=== PATIENT | female | born 1945 | race Caucasian/White ===

== ENCOUNTER 2020-03-10 15:00 | Inpatient (IN) | payer MEDICARE ==
--- NOTE | 2020-03-10 15:25 | ED ---
General Adult HPI - General Chief complaint: Recheck/Abnormal Lab/Rx Stated complaint: SOB Time Seen by Provider: 03/10/20 15:05 Source: patient Mode of arrival: wheelchair Limitations: no limitations - History of Present Illness Initial comments: Patient is a 74-year-old female past medical history of iron deficiency anemia, SVT who presents to the emergency department with reported exertional shortness of breath and palpitations. Patient states that she has been short of breath since Wednesday. Symptoms feel similar to when her hemoglobin drop secondary to her iron deficiency anemia. She sees Dr. Sal in office. Her last evaluation was in October. Her abdomen was low but not low enough for transfusion. She's been unable to follow-up because Covid. She denies any chest pain but admits chest pressure. No previous history of cardiac or lung disease. Denies fevers, chills or cough. No nausea or vomiting. Denies orthopnea. Denies melenic stools or hematochezia. Reports that she's had a thorough workup for her anemia. Denies any lower extremity edema. No history of DVT or PE. She is not on any blood thinning medications. There are no alleviating, precipitating or modifying factors - Related Data Home Medications Medication Instructions Recorded Confirmed Atorvastatin [Lipitor] 20 mg PO DAILY 03/10/20 03/10/20 Cholecalciferol (Vitamin D3) 50 mcg PO DAILY 03/10/20 03/10/20 [Vitamin D3] Diltiazem HCl [Cardizem CD] 240 mg PO DAILY 03/10/20 03/10/20 Losartan Potassium [Cozaar] 25 mg PO DAILY 03/10/20 03/10/20 Omeprazole [PriLOSEC] 20 mg PO DAILY 03/10/20 03/10/20 Previous Rx's Medication Instructions Recorded Amoxic-Pot Clav 875-125Mg 1 each PO Q12HR #12 tab 03/12/20 [Augmentin 875-125] Butalb/APAP/Caff 50-325-40Mg 1 each PO Q4HR PRN tab 03/12/20 [Fioricet 50-325-40] Allergies Allergy/AdvReac Type Severity Reaction Status Date / Time meperidine [From Demerol] Allergy Unknown Verified 03/10/20 16:15 iron AdvReac Vomiting Verified 03/10/20 16:15 Review of Systems ROS Statement: Those systems with pertinent positive or pertinent negative responses have been documented in the HPI. ROS Other: All systems not noted in ROS Statement are negative. Past Medical History Past Medical History: Hyperlipidemia, Hypertension, Supraventricular Tachycardia (SVT) Additional Past Medical History / Comment(s): Iron deficiency anemia, SVT, vasovagal History of Any Multi-Drug Resistant Organisms: None Reported Past Surgical History: Back Surgery Past Psychological History: No Psychological Hx Reported Smoking Status: Never smoker Past Alcohol Use History: None Reported Past Drug Use History: None Reported - Past Family History Mother Additional Family Medical History / Comment(s): heart problems Sister(s) Family Medical History: Cancer Additional Family Medical History / Comment(s): of pancreatic cancer General Exam Limitations: no limitations General appearance: alert, in no apparent distress Head exam: Present: atraumatic, normocephalic, normal inspection Eye exam: Present: normal appearance, PERRL, EOMI. Absent: scleral icterus, conjunctival injection, periorbital swelling ENT exam: Present: normal exam, mucous membranes moist Neck exam: Present: normal inspection. Absent: tenderness, meningismus, lymphadenopathy Respiratory exam: Present: respiratory distress, decreased breath sounds, other (coarse at bases. tachypnia). Absent: wheezes, rales, rhonchi, stridor Cardiovascular Exam: Present: regular rate, normal rhythm, normal heart sounds. Absent: systolic murmur, diastolic murmur, rubs, gallop, clicks GI/Abdominal exam: Present: soft, normal bowel sounds. Absent: distended, tenderness, guarding, rebound, rigid Extremities exam: Present: normal inspection, full ROM, normal capillary refill. Absent: tenderness, pedal edema, joint swelling, calf tenderness Back exam: Present: normal inspection Neurological exam: Present: alert, oriented X3, CN II-XII intact Psychiatric exam: Present: normal affect, normal mood Skin exam: Present: warm, dry, intact, normal color. Absent: rash Course Vital Signs 03/10/20 03/10/20 03/10/20 15:05 16:15 17:24 Temperature 99.1 F Pulse Rate 109 H 82 81 Pulse Rate [ Pulse Oximetery ] Respiratory 20 18 18 Rate Blood Pressure 168/93 157/95 157/95 Blood Pressure [Right Arm] O2 Sat by Pulse 92 L 95 95 Oximetry 03/10/20 03/10/20 03/10/20 17:27 17:33 17:45 Temperature 99.5 F Pulse Rate 80 84 90 Pulse Rate [ Pulse Oximetery ] Respiratory 20 Rate Blood Pressure 156/83 Blood Pressure [Right Arm] O2 Sat by Pulse 93 L Oximetry 03/10/20 03/10/20 03/10/20 17:46 18:44 19:22 Temperature 98.6 F 98.7 F Pulse Rate 85 86 Pulse Rate [ Pulse Oximetery ] Respiratory 18 18 Rate Blood Pressure 151/88 142/87 Blood Pressure [Right Arm] O2 Sat by Pulse 89 L 92 L 93 L Oximetry 03/10/20 03/10/20 03/10/20 20:42 20:53 21:45 Temperature 98.1 F Pulse Rate 83 93 100 Pulse Rate [ Pulse Oximetery ] Respiratory 20 Rate Blood Pressure 106/52 Blood Pressure [Right Arm] O2 Sat by Pulse 96 Oximetry 03/10/20 03/10/20 03/11/20 23:29 23:38 01:20 Temperature 97 F L Pulse Rate 86 86 Pulse Rate [ 99 Pulse Oximetery ] Respiratory 16 Rate Blood Pressure Blood Pressure 121/67 [Right Arm] O2 Sat by Pulse 96 93 L Oximetry 03/11/20 03/11/20 03/11/20 04:10 04:22 07:00 Temperature 97.8 F Pulse Rate 90 104 H Pulse Rate [ 86 Pulse Oximetery ] Respiratory 20 Rate Blood Pressure Blood Pressure 124/67 [Right Arm] O2 Sat by Pulse 91 L Oximetry 03/11/20 03/11/20 03/11/20 07:59 08:15 12:20 Temperature Pulse Rate 100 102 H 96 Pulse Rate [ Pulse Oximetery ] Respiratory Rate Blood Pressure Blood Pressure [Right Arm] O2 Sat by Pulse Oximetry 03/11/20 03/11/20 12:33 15:00 Temperature 98.4 F Pulse Rate 96 Pulse Rate [ 110 H Pulse Oximetery ] Respiratory 20 Rate Blood Pressure Blood Pressure 152/80 [Right Arm] O2 Sat by Pulse 91 L Oximetry EKG Findings - EKG Comments: EKG Findings:: Demonstrates a sinus rhythm with ventricular rate of 90. WA interval 216. QRS 82. QTC family. No acute ST segment elevations. T wave is inverted T-wave in lead 3. Medical Decision Making - Medical Decision Making Upon arrival the patient is placed into room 1. A thorough history and physical exam was performed. The patient is saturating 92% on room air. She is placed on 2 L of oxygen. Laboratory studies were conducted and the patient went for chest x-ray. Laboratory studies are remarkable for a hemoglobin of 12.9. D- dimer was elevated at 0.95. I did discuss the results with the patient. I did recommend CT of the patient's chest which demonstrates no evidence of pulmonary embolism with extensive chronic interstitial pulmonary infiltrates similar to her old exam. Patient is given a DuoNeb breathing treatment and 125 mg of solumedrol. Patient does sit up on the side of the bed is and is saturating only 89% on room air. She does ambulate at 89%. Because of the patient's persistent hypoxia requiring oxygen I did recommend hospital admission for which the patient did agree to. I discussed case with Dr. Colón. I will consult neurology. Patient was in agreement with the treatment plan and she was awaiting a bed on the floor - Lab Data Result diagrams: 03/10/20 15:14 03/10/20 15:14 Lab Results 03/10/20 03/10/20 03/10/20 Range/Units 15:14 15:14 15:14 WBC 8.6 (3.8-10.6) k/uL RBC 4.27 (3.80-5.40) m/uL Hgb 12.9 (11.4-16.0) gm/dL Hct 38.5 (34.0-46.0) % MCV 90.3 (80.0-100.0) fL MCH 30.2 (25.0-35.0) pg MCHC 33.4 (31.0-37.0) g/dL RDW 14.3 (11.5-15.5) % Plt Count 271 (150-450) k/uL Neutrophils % 75 % Lymphocytes % 13 % Monocytes % 7 % Eosinophils % 2 % Basophils % 0 % Neutrophils # 6.5 (1.3-7.7) k/uL Lymphocytes # 1.2 (1.0-4.8) k/uL Monocytes # 0.6 (0-1.0) k/uL Eosinophils # 0.2 (0-0.7) k/uL Basophils # 0.0 (0-0.2) k/uL PT 9.8 (9.0-12.0) sec INR 0.9 (<1.2) APTT 22.7 (22.0-30.0) sec D-Dimer 0.95 H (<0.60) mg/L FEU Sodium 136 L (137-145) mmol/L Potassium 3.7 (3.5-5.1) mmol/L Chloride 105 (98-107) mmol/L Carbon Dioxide 24 (22-30) mmol/L Anion Gap 7 mmol/L BUN 16 (7-17) mg/dL Creatinine 0.70 (0.52-1.04) mg/dL Est GFR (CKD-EPI)AfAm >90 (>60 ml/min/1.73 sqM) Est GFR (CKD-EPI)NonAf 85 (>60 ml/min/1.73 sqM) Glucose 116 H (74-99) mg/dL Plasma Lactic Acid Jamal (0.7-2.0) mmol/L Calcium 9.7 (8.4-10.2) mg/dL Magnesium 1.9 (1.6-2.3) mg/dL Iron (50-170) ug/dL TIBC (228-460) ug/dL % Saturation (12.00-45.00) Total Bilirubin 0.4 (0.2-1.3) mg/dL AST 32 (14-36) U/L ALT 28 (4-34) U/L Alkaline Phosphatase 135 H (38-126) U/L Troponin I (0.000-0.034) ng/mL Total Protein 6.5 (6.3-8.2) g/dL Albumin 3.7 (3.5-5.0) g/dL 03/10/20 03/10/20 03/10/20 Range/Units 15:14 15:14 15:14 WBC (3.8-10.6) k/uL RBC (3.80-5.40) m/uL Hgb (11.4-16.0) gm/dL Hct (34.0-46.0) % MCV (80.0-100.0) fL MCH (25.0-35.0) pg MCHC (31.0-37.0) g/dL RDW (11.5-15.5) % Plt Count (150-450) k/uL Neutrophils % % Lymphocytes % % Monocytes % % Eosinophils % % Basophils % % Neutrophils # (1.3-7.7) k/uL Lymphocytes # (1.0-4.8) k/uL Monocytes # (0-1.0) k/uL Eosinophils # (0-0.7) k/uL Basophils # (0-0.2) k/uL PT (9.0-12.0) sec INR (<1.2) APTT (22.0-30.0) sec D-Dimer (<0.60) mg/L FEU Sodium (137-145) mmol/L Potassium (3.5-5.1) mmol/L Chloride (98-107) mmol/L Carbon Dioxide (22-30) mmol/L Anion Gap mmol/L BUN (7-17) mg/dL Creatinine (0.52-1.04) mg/dL Est GFR (CKD-EPI)AfAm (>60 ml/min/1.73 sqM) Est GFR (CKD-EPI)NonAf (>60 ml/min/1.73 sqM) Glucose (74-99) mg/dL Plasma Lactic Acid Jamal 1.1 (0.7-2.0) mmol/L Calcium (8.4-10.2) mg/dL Magnesium (1.6-2.3) mg/dL Iron 30 L (50-170) ug/dL TIBC 379 (228-460) ug/dL % Saturation 7.92 L (12.00-45.00) Total Bilirubin (0.2-1.3) mg/dL AST (14-36) U/L ALT (4-34) U/L Alkaline Phosphatase (38-126) U/L Troponin I <0.012 (0.000-0.034) ng/mL Total Protein (6.3-8.2) g/dL Albumin (3.5-5.0) g/dL Disposition Clinical Impression: Shortness of breath, Hypoxia Disposition: ADMITTED IP TO THIS [facility] Condition: Stable Is patient prescribed a controlled substance at d/c from ED?: No Decision to Admit Reason: Admit from EC Decision Date: 03/10/20 Decision Time: 17:52
[2020-03-10 15:40] LABS: Basophils % (A) 0 %; Eosinophils # (A) 0.2 k/uL (0-0.7); Eosinophils % (A) 2 %; HCT 38.5 % (34.0-46.0); HGB 12.9 gm/dL (11.4-16.0); Lymphocytes # (A) 1.2 k/uL (1.0-4.8); Lymphocytes % (A) 13 %; MCH 30.2 pg (25.0-35.0); MCHC 33.4 g/dL (31.0-37.0); MCV 90.3 fL (80.0-100.0); Mean Platelet Volume 8.1; Monocytes # (A) 0.6 k/uL (0-1.0); Monocytes % (A) 7 %; Neutrophils # (A) 6.5 k/uL (1.3-7.7); Neutrophils % (A) 75 %; Platelet Count 271 k/uL (150-450); RBC 4.27 m/uL (3.80-5.40); RDW 14.3 % (11.5-15.5); WBC 8.6 k/uL (3.8-10.6)
[2020-03-10 15:45] LABS: ALT 28 U/L (4-34); AST 32 U/L (14-36); African American GFR (CKD) >90 (>60 ml/min/1.73 sqM); Albumin 3.7 g/dL (3.5-5.0); Alkaline Phosphatase 135 U/L (38-126); Anion Gap 7 mmol/L; Blood Urea Nitrogen 16 mg/dL (7-17); Calcium 9.7 mg/dL (8.4-10.2); Carbon Dioxide 24 mmol/L (22-30); Chloride 105 mmol/L (98-107); Glucose 116 mg/dL (74-99); Magnesium 1.9 mg/dL (1.6-2.3); Non-African American GFR(CKD) 85 (>60 ml/min/1.73 sqM); Potassium 3.7 mmol/L (3.5-5.1); Sodium 136 mmol/L (137-145); Total Bilirubin 0.4 mg/dL (0.2-1.3); Total Protein 6.5 g/dL (6.3-8.2)
[2020-03-10 15:49] LABS: INR 0.9 (<1.2); Partial Thromboplastin Time 22.7 sec (22.0-30.0); Prothrombin Time 9.8 sec (9.0-12.0)
--- NOTE | 2020-03-10 15:57 | XR ---
EXAMINATION TYPE: XR chest 2V DATE OF EXAM: 03/10/2020 COMPARISON: 03/24/2013 HISTORY: Difficulty breathing TECHNIQUE: FINDINGS: There is a large hiatal hernia with fluid level. There is no heart failure. Lungs appear cl ear of consolidation. There is coarse lung markings at both lung bases. Thoracic aorta is atheromatou s. Bony thorax is intact. IMPRESSION: Large hiatal hernia. Interstitial pulmonary infiltrates in the lower lung hernandez. No obvi ous heart failure. Chest appears not significantly different than old exam.
[2020-03-10 15:59] LABS: D-Dimer 0.95 mg/L FEU (<0.60)
--- NOTE | 2020-03-10 16:39 | CT ---
EXAMINATION TYPE: CT angio chest DATE OF EXAM: 03/10/2020 COMPARISON: 03/24/2013 HISTORY: Shortness of breath and chest discomfort for [address] DLP: 572.5 mGycm Automated exposure control for dose reduction was used. CONTRAST: Performed with IV Contrast, patient injected with 100 mL of Isovue 370. There are 3-D post processed images. There is coarse interstitial infiltrate throughout the lungs. There is large hiatal hernia. There is also some patchy groundglass interstitial infiltrate. There is 2 x 1 cm pretracheal lymph node. There are no hilar masses. Heart appears slightly enlarged. There is large hiatal hernia. There are multip le cysts in the liver that measure up to 4.5 cm. There is no pleural effusion. Thoracic aorta is athe romatous. Aorta measures up to 3.5 cm. I see no filling defect in the pulmonary arteries. There is hypertrophic spurring throughout the thor acic spine. There is no compression fracture. Bony thorax is intact. IMPRESSION: No evidence of pulmonary embolism. Large hiatal hernia. Extensive chronic interstitial pulmonary infiltrates similar to old exam and consistent with pulmonar y interstitial fibrosis.
[2020-03-10] MEDS ORDERED: methylPREDNISolone SOD SUCCI 125 MG/2 ML VIAL IV STA (17:03)
[2020-03-10] MEDS ORDERED: IPRATROPIUM-ALBUTEROL 3 ML NEB INHALATION STA (17:03)
[2020-03-10] MEDS ORDERED: NALOXONE 0.4 MG/ML 1 ML VIAL IV PRN (17:52)
[2020-03-10] MEDS: IPRATROPIUM-ALBUTEROL 3 ML NEB INHALATION SCH ×2 (20:41→23:29)
--- NOTE | 2020-03-10 21:42 | P.HPIM ---
History of Present Illness H&P Date: 03/10/20 The patient was seen and evaluated in the emergency room at 9 PM on 03/10 The patient is a 74-year-old female, never smoker with a PMH of iron deficiency anemia, SVT, hypertension, and hyperlipidemia who presented to the ED with complaints of shortness of breath. The patient notes she has gradually been feeling short of breath with exertion and at rest over the past 2 days. 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 She thereby came to the ED for CBC check. She denied chest discomfort, palpitations, fever, chills, or cough. Also denied recent travel, sick contacts, lower extremity swelling, lower extremity pain. She denied any previous history of interstitial lung disease or pulmonary fibrosis. In the emergency room, she was afebrile and saturating 93% on 2 L is a cannula. Laboratory evaluation revealed a WBC count of 8.6, hemoglobin 12.9, platelets 271, sodium 136, potassium 3.7, BUN 16, creatinine 0.70, glucose 116, alkaline phosphatase 135, troponin less than 0.012, and d-dimer 0.95. A subsequent chest CTA revealed no evidence of pulmonary embolism with a large hiatal hernia and extensive chronic interstitial pulmonary infiltrates, with pulmonary interstitial fibrosis. EKG revealed sinus rhythm with first-degree AV block and 90 bpm with left atrial enlargement and le ft axis deviation. Review of Systems Pertinent positives and negatives as discussed in HPI, a complete review of systems was performed and all other systems are negative. Past Medical History Past Medical History: Hyperlipidemia, Hypertension, Supraventricular Tachycardia (SVT) Additional Past Medical History / Comment(s): Iron deficiency anemia, SVT, vasovagal History of Any Multi-Drug Resistant Organisms: None Reported Past Surgical History: Back Surgery Past Psychological History: No Psychological Hx Reported Smoking Status: Never smoker Past Alcohol Use History: None Reported Past Drug Use History: None Reported - Past Family History Mother Additional Family Medical History / Comment(s): heart problems Sister(s) Family Medical History: Cancer Additional Family Medical History / Comment(s): of pancreatic cancer Medications and Allergies Home Medications Medication Instructions Recorded Confirmed Type Atorvastatin [Lipitor] 20 mg PO DAILY 03/10/20 03/10/20 History Cholecalciferol (Vitamin D3) 50 mcg PO DAILY 03/10/20 03/10/20 History [Vitamin D3] Diltiazem HCl [Cardizem CD] 240 mg PO DAILY 03/10/20 03/10/20 History Losartan Potassium [Cozaar] 25 mg PO DAILY 03/10/20 03/10/20 History Omeprazole [PriLOSEC] 20 mg PO DAILY 03/10/20 03/10/20 History Allergies Allergy/AdvReac Type Severity Reaction Status Date / Time meperidine [From Demerol] Allergy Unknown Verified 03/10/20 16:15 iron AdvReac Vomiting Verified 03/10/20 16:15 Physical Exam Vitals: Vital Signs Temp Pulse Resp BP Pulse Ox 03/10/20 20:53 93 03/10/20 20:42 83 03/10/20 19:22 98.7 F 86 18 142/87 93 L 03/10/20 18:44 98.6 F 85 18 151/88 92 L 03/10/20 17:46 89 L 03/10/20 17:45 99.5 F 90 20 156/83 93 L 03/10/20 17:33 84 03/10/20 17:27 80 03/10/20 17:24 81 18 157/95 95 03/10/20 16:15 82 18 157/95 95 03/10/20 15:05 99.1 F 109 H 20 168/93 92 L Intake and Output 03/10/20 03/10/20 03/10/20 06:59 14:59 22:59 Other: Weight 102.058 kg General: non toxic, no distress, appears at stated age, morbidly obese Derm: no unusual rashes/lesions no unusual ecchymoses, warm, dry Head: atraumatic, normocephalic, symmetric Eyes: EOMI, no lid lag, anicteric sclera, pupils equal round reactive to light ENT: Nose and ears atraumatic, no thrush, no pharyngeal erythema Neck: No thyromegaly, no cervical lymphadenopathy, trachea midline, supple Mouth: no lip lesion, mucus membranes moist Cardiovascular: S1S2 reg, no murmur, positive posterior tibial pulse bilateral, no edema, capillary refill less than 2 seconds Lungs: Fine bibasilar crackles, no wheezing or coarse breath sounds appreciated, no accessory muscle use Abdominal: soft, nontender to palpation, no guarding, no appreciable organomegaly, normal bowel sounds Ext: no gross muscle atrophy, muscle strength 5 out of 5 in all 4 extremities grossly, no contractures, Neuro: CN II-XI grossly intact, light touch intact all 4 extremities, finger to nose within normal limits, Psych: Alert, oriented, appropriate affect Results CBC & Chem 7: 03/10/20 15:14 03/10/20 15:14 Labs: Abnormal Lab Results - Last 24 Hours (Table) 03/10/20 03/10/20 Range/Units 15:14 15:14 D-Dimer 0.95 H (<0.60) mg/L FEU Sodium 136 L (137-145) mmol/L Glucose 116 H (74-99) mg/dL Alkaline Phosphatase 135 H (38-126) U/L Assessment and Plan Plan: Shortness of breath, possibly related to worsening interstitial lung disease -Continue cardiac monitoring for now in setting of history of SVT -Pulmonary consult -Supplemental oxygen -DuoNeb's when necessary -Coronavirus testing pending Chronic conditions: Hypertension, hyperlipidemia, SVT -Continue with home meds DVT prophylaxis -Heparin subq The patient is admitted with an anticipated greater than 2 midnight stay for evaluation of SOB CODE STATUS: Full Code Discussed with: Patient Anticipated discharge date: 2-[address]: Home A total of 35 minutes was spent on the care of this complex patient more than 50% of the time was spent in counseling and care coordination.
[2020-03-11] MEDS: HEPARIN SODIUM,PORCINE 5,000 UNIT/ML 1 ML VIAL SQ SCH ×3 (01:22→15:37)
[2020-03-11] MEDS: HYDROcodone/APAP 7.5-325MG 1 EACH TAB PO PRN ×2 (03:54→19:47)
[2020-03-11] MEDS: IPRATROPIUM-ALBUTEROL 3 ML NEB INHALATION SCH ×6 (04:09→23:36)
[2020-03-11] MEDS: LOSARTAN 25 MG TAB PO SCH (08:56)
[2020-03-11] MEDS: ATORVASTATIN 20 MG TAB PO SCH (08:56)
[2020-03-11] MEDS: DILTIAZEM CD 240 MG CAP.ER.24H PO SCH (08:56)
[2020-03-11 11:31] LABS: % Iron Saturation 7.92 (12.00-45.00)
[2020-03-11] MEDS: PIPERACILLIN-TAZOBACTAM 3.375 GM in SODIUM CHLORIDE 0.9% 100 ML IVPB SCH ×2 (12:40→19:47)
--- NOTE | 2020-03-11 13:25 | P.CNPUL ---
History of Present Illness Consult date: 03/11/20 Requesting physician: Evelia Colón Reason for consult: dyspnea Chief complaint: Exertional dyspnea, fatigue History of present illness: 74-year-old white female patient who resides in [place], but spends fair amount of time in [place], with past medical history of iron deficiency anemia, hiatal hernia, his history of SVT, hypertension, hyperlipidemia, chronic back pain, lifetime nonsmoker, and no history of chronic lung disease, presented to the hospital on 03/10/2020 with complaints of exertional shortness of breath. Apparently she was due to be seen by Dr. Sal for her iron deficiency anemia. Patient has been short of breath since Wednesday. She has not been able to follow-up with Dr. Sal since October related to coronary wires pandemic. She states she has had ongoing problems with difficulty swallowing and she said previous evaluation for dysphagia. She denied any fever or chills, she states she feels like she has no energy, reports some palpitations but states that they're chronic in nature. Chest x-ray revealed large hiatal hernia, interstitial pulmonary infiltrates in the lower lung hernandez, no obvious heart failure. Labs revealed normal CBC, white count is 8.6, hemoglobin is 12.9, coagulation profile was within normal limits, with the slightly elevated d-dimer at 0.95, sodium is 136, the rest of the left psoas and renal profile were within normal limits. Plasma lactic acid was 1.1, iron level was 30, TIBC was 379, iron saturation was 7.92, LFTs were within normal limits, troponin was less than 0.0123. Coronavirus PCR was negative. CTA chest was obtained showing no evidence of pulmonary embolism, large hiatal hernia, patchy groundglass inter stitial infiltrates, 2 x 1 cm pretracheal lymph node, no hilar masses, slightly enlarged heart, multiple cysts in the liver, no pleural effusion. Patient reports no history of smoking, in view of her history of dysphagia, and large hiatal hernia chronic aspiration is suspected with extensive scarring present in her lungs. Review of Systems All systems: negative Constitutional: Reports weakness, Denies chills, Denies fever Eyes: denies blurred vision, denies pain Ears, nose, mouth and throat: Denies headache, Denies sore throat Cardiovascular: Denies chest pain, Denies shortness of breath Respiratory: Reports dyspnea, Denies cough Gastrointestinal: Denies abdominal pain, Denies diarrhea, Denies nausea, Denies vomiting Genitourinary: Denies dysuria, Denies hematuria Musculoskeletal: Denies myalgias Integumentary: Denies pruritus, Denies rash Neurological: Denies numbness, Denies weakness Psychiatric: Denies anxiety, Denies depression Endocrine: Denies fatigue, Denies weight change Past Medical History Past Medical History: Hyperlipidemia, Hypertension, Supraventricular Tachycardia (SVT) Additional Past Medical History / Comment(s): Iron deficiency anemia, SVT, vasovagal History of Any Multi-Drug Resistant Organisms: None Reported Past Surgical History: Back Surgery Additional Past Surgical History / Comment(s): ankle surgery, cataract surgery Past Anesthesia/Blood Transfusion Reactions: No Reported Reaction Past Psychological History: No Psychological Hx Reported Smoking Status: Never smoker Past Alcohol Use History: None Reported Past Drug Use History: None Reported - Past Family History Mother Additional Family Medical History / Comment(s): heart problems Sister(s) Family Medical History: Cancer Additional Family Medical History / Comment(s): of pancreatic cancer Medications and Allergies Home Medications Medication Instructions Recorded Confirmed Type Atorvastatin [Lipitor] 20 mg PO DAILY 03/10/20 03/10/20 History Cholecalciferol (Vitamin D3) 50 mcg PO DAILY 03/10/20 03/10/20 History [Vitamin D3] Diltiazem HCl [Cardizem CD] 240 mg PO DAILY 03/10/20 03/10/20 History Losartan Potassium [Cozaar] 25 mg PO DAILY 03/10/20 03/10/20 History Omeprazole [PriLOSEC] 20 mg PO DAILY 03/10/20 03/10/20 History Allergies Allergy/AdvReac Type Severity Reaction Status Date / Time meperidine [From Demerol] Allergy Unknown Verified 03/10/20 16:15 iron AdvReac Vomiting Verified 03/10/20 16:15 Physical Exam Vitals: Vital Signs Temp Pulse Pulse Resp BP BP Pulse Ox 03/11/20 12:33 96 03/11/20 12:20 96 03/11/20 08:15 102 H 03/11/20 07:59 100 03/11/20 07:00 97.8 F 86 20 124/67 91 L 03/11/20 04:22 104 H 03/11/20 04:10 90 03/11/20 01:20 97 F L 99 16 121/67 93 L 03/10/20 23:38 86 03/10/20 23:29 86 96 03/10/20 21:45 98.1 F 100 20 106/52 96 03/10/20 20:53 93 03/10/20 20:42 83 03/10/20 19:22 98.7 F 86 18 142/87 93 L 03/10/20 18:44 98.6 F 85 18 151/88 92 L 03/10/20 17:46 89 L 03/10/20 17:45 99.5 F 90 20 156/83 93 L 03/10/20 17:33 84 03/10/20 17:27 80 03/10/20 17:24 81 18 157/95 95 03/10/20 16:15 82 18 157/95 95 03/10/20 15:05 99.1 F 109 H 20 168/93 92 L Intake and Output 03/10/20 03/11/20 03/11/20 22:59 06:59 14:59 Intake Total 480 Balance 480 Intake: Oral 480 Other: Weight 102.058 kg 102.058 kg GENERAL EXAM: Alert, very pleasant, 74-year-old white female, on 3 L of oxygen with a pulse ox of 91%, comfortable in no apparent distress. HEAD: Normocephalic/atraumatic. EYES: Normal reaction of pupils, equal size. Conjunctiva pink, sclera white. NOSE: Clear with pink turbinates. THROAT: No erythema or exudates. NECK: No masses, no JVD, no thyroid enlargement, no adenopathy. CHEST: No chest wall deformity. Symmetrical expansion. LUNGS: Equal air entry with no crackles, wheeze, rhonchi or dullness. CVS: Regular rate and rhythm, normal S1 and S2, no gallops, no murmurs, no rubs ABDOMEN: Soft, nontender. No hepatosplenomegaly, normal bowel sounds, no guarding or rigidity. EXTREMITIES: No clubbing, no edema, no cyanosis, 2+ pulses and upper and lower extremities. MUSCULOSKELETAL: Muscle strength and tone normal. SPINE: No scoliosis or deformity SKIN: No rashes CENTRAL NERVOUS SYSTEM: Alert and oriented -3. No focal deficits, tone is normal in all 4 extremities. PSYCHIATRIC: Alert and oriented -3. Appropriate affect. Intact judgment and insight. Results - Laboratory Findings CBC and BMP: 03/10/20 15:14 03/10/20 15:14 PT/INR, D-dimer PT 9.8 sec (9.0-12.0) 03/10/20 15:14 INR 0.9 (<1.2) 03/10/20 15:14 D-Dimer 0.95 mg/L FEU (<0.60) H 03/10/20 15:14 Abnormal lab findings: Abnormal Labs 03/10/20 03/10/20 03/10/20 15:14 15:14 15:14 D-Dimer 0.95 H Sodium 136 L Glucose 116 H Iron 30 L % Saturation 7.92 L Alkaline Phosphatase 135 H - Diagnostic Findings Chest x-ray: report reviewed, image reviewed CT scan - chest: report reviewed, image reviewed Additional studies: EKG reviewed Assessment and Plan Plan: Assessment: #1. Acute hypoxic respiratory failure related to pulmonary fibrosis, with suspected chronic aspiration, and possibility aspiration related pneumonia #2. Large hiatal hernia and chronic dysphagia, with suspected secondary aspiration #3. Lifetime nonsmoker #4. Mildly elevated d-dimer, CTA chest negative for evidence of pulmonary embolism #5. Chronic iron deficiency anemia #6. Hypertension #7. Hyperlipidemia #8. History of SVT #9. Chronic back pain Plan: Chest x-ray and CTA chest reviewed with Dr. Villa, patient was evaluated by Dr. Villa. Chronic aspiration is suspected based on her history of dysphagia and large hiatal hernia, will obtain GI service evaluation. We will add Zosyn for antibiotic coverage. Breathing treatments, COVID 19 testing was negative. We'll continue to follow I performed a history & physical examination of the patient and discussed their management with my nurse practitioner, Mel Gill. I reviewed the nurse practitioner's note and agree with the documented findings and plan of care. Lung sounds are positive for diminished breath sounds at the bases. The findings and the impression was discussed with the patient. I attest to the documentation by the nurse practitioner. Time with Patient: Greater than 30
[2020-03-11] MEDS ORDERED: BUTALB/APAP/CAFF 50-325-40MG TAB PO PRN (17:01)
--- NOTE | 2020-03-11 17:24 | P.PN ---
Subjective Progress Note Date: 03/11/20 Principal diagnosis: Shortness of breath Patient was seen and examined. No acute events overnight. Patient reports considerable improvement in her breathing since admission. She denies any chest pain or palpitations. No nausea or vomiting. No fever or chills. Reports foamy white sputum in the morning and difficulty swallowing at times. Objective - Vital Signs Vital signs: Vital Signs Temp 98.0 F 03/11/20 16:15 Pulse 100 03/11/20 16:35 Resp 18 03/11/20 16:15 BP 135/82 03/11/20 16:15 Pulse Ox 96 03/11/20 16:15 Intake & Output 03/10/20 03/11/20 03/11/20 18:59 06:59 18:59 Intake Total 480 Balance 480 Weight 102.058 kg 102.058 kg Intake: Oral 480 Other: # Voids 3 - Exam General: [non toxic], [no distress], [appears at stated age] Derm: [warm], [dry] Head: [atraumatic], [normocephalic], [symmetric] Eyes: [EOMI], [no lid lag], [anicteric sclera] Mouth: [no lip lesion], [mucus membranes moist] Cardiovascular: [S1S2 reg], [no murmur], [positive posterior tibial pulse bilateral], Lungs: [CTA bilateral], [no rhonchi, no rales] , [no accessory muscle use] Abdominal: [soft], [ nontender to palpation], [no guarding], [no appreciable organomegaly] Ext: [no gross muscle atrophy], [no edema], [no contractures] Neuro: [ CN II-XI grossly intact], [no focal neuro deficits] Psych: [Alert], [oriented], [appropriate affect] - Labs CBC & Chem 7: 03/10/20 15:14 03/10/20 15:14 Labs: Abnormal Lab Results - Last 24 Hours (Table) 03/10/20 Range/Units 15:14 Iron 30 L (50-170) ug/dL % Saturation 7.92 L (12.00-45.00) Assessment and Plan Assessment: Shortness of breath, possibly related to worsening interstitial lung disease with superimposed aspiration pneumonia -Continue cardiac monitoring for now in setting of history of SVT -Pulmonary recommendations appreciated, plans for barium swallow tomorrow -Supplemental oxygen -DuoNeb's when necessary -Coronavirus testing negative Hiatal hernia -GI consulted, plans for barium swallow tomorrow. -Continue Protonix IV twice a day. Chronic conditions: Hypertension, hyperlipidemia, SVT -Continue with home meds DVT prophylaxis -Heparin subq [Patient admitted for shortness of breath. Considerably improved as per patient. Pulmonology on board. GI consulted for hiatal hernia and possible aspiration pneumonia. Barium swallow planned for tomorrow. Plans on DC home tomorrow if patient continues to show improvement.]
[2020-03-11] MEDS: PANTOPRAZOLE 40 MG/10 ML VIAL IVP SCH (19:46)
[2020-03-12] MEDS: HEPARIN SODIUM,PORCINE 5,000 UNIT/ML 1 ML VIAL SQ SCH ×2 (00:36→08:00)
[2020-03-12] MEDS: IPRATROPIUM-ALBUTEROL 3 ML NEB INHALATION SCH ×3 (04:03→12:14)
[2020-03-12] MEDS: PIPERACILLIN-TAZOBACTAM 3.375 GM in SODIUM CHLORIDE 0.9% 100 ML IVPB SCH (04:13)
[2020-03-12] MEDS: DILTIAZEM CD 240 MG CAP.ER.24H PO SCH (08:00)
[2020-03-12] MEDS: LOSARTAN 25 MG TAB PO SCH (08:00)
[2020-03-12] MEDS: ATORVASTATIN 20 MG TAB PO SCH (08:00)
[2020-03-12] MEDS: PANTOPRAZOLE 40 MG/10 ML VIAL IVP SCH (08:00)
[2020-03-12 08:33] VITALS: RESP 16
[2020-03-12 09:46] VITALS: BP 165/79; TEMP 97.9
--- NOTE | 2020-03-12 10:23 | P.CONS ---
History of Present Illness - Reason for Consult Consult date: 03/11/20 Hiatal hernia, possible aspiration pneumonia Requesting physician: Pb Springer - Chief Complaint Shortness of breath - History of Present Illness 74-year-old female with a medical history significant for hypertension, hyperlipidemia, and deficiency anemia and SVT who presented to the hospital with complaints of shortness of breath. Patient reports worsening shortness of breath prior to presentation over the past few days prior to her presentation to the emergency department. She does have a known history of iron deficiency anemia with prior evaluation including EGD and colonoscopy 1 year ago in [place] negative for a source of bleeding with patient reporting findings of hiatal hernia on upper endoscopy and polypectomy on colonoscopy. She was told at that time that it was secondary to a suspected GI bleed. Currently she is denying any signs or symptoms of GI bleeding and was found to have a normal hemoglobin of 12.9 on presentation with a WBC 8.6, platelet count 271,000, INR 0.9, alkaline phosphatase 135, total bilirubin 0.4, AST 32 and ALT 28. She did have findings of a large hiatal hernia on chest x-ray. She does report PPI therapy at home with omeprazole which she takes every other day. Occasionally she'll have problems swallowing food, predominantly solids. No change in bowel habits, blood per rectum or melena as stated. Review of Systems REVIEW OF SYSTEMS: CONSTITUTIONAL: Denies any fevers, chills, weight change or fatigue. CARDIOVASCULAR: Denies any chest pain, palpitations high or low blood pressures RESPIRATORY: Denies any hemoptysis but did report shortness of breath and cough presentation. GENITOURINARY: No dysuria or hematuria. MUSCULOSKELETAL: No weakness reported. SKIN: Denies any new rashes or lesions, jaundice or pallor. PSYCHIATRIC: Denies any depression or anxiety. NEUROLOGY: Denies headache, denies any new focal deficits. EARS/NOSE/THROAT: No recent hearing change, congestion, nasal discharge or sore throat. EYES: No pain in eyes, discharge or change in vision. GASTROINTESTINAL: As per HPI. Past Medical History Past Medical History: Hyperlipidemia, Hypertension, Supraventricular Tachycardia (SVT) Additional Past Medical History / Comment(s): Iron deficiency anemia, SVT, vaso vagal History of Any Multi-Drug Resistant Organisms: None Reported Past Surgical History: Back Surgery Additional Past Surgical History / Comment(s): ankle surgery, cataract surgery Past Anesthesia/Blood Transfusion Reactions: No Reported Reaction Past Psychological History: No Psychological Hx Reported Smoking Status: Never smoker Past Alcohol Use History: None Reported Past Drug Use History: None Reported - Past Family History Mother Additional Family Medical History / Comment(s): heart problems Sister(s) Family Medical History: Cancer Additional Family Medical History / Comment(s): of pancreatic cancer Medications and Allergies Home Medications Medication Instructions Recorded Confirmed Type Atorvastatin [Lipitor] 20 mg PO DAILY 03/10/20 03/10/20 History Cholecalciferol (Vitamin D3) 50 mcg PO DAILY 03/10/20 03/10/20 History [Vitamin D3] Diltiazem HCl [Cardizem CD] 240 mg PO DAILY 03/10/20 03/10/20 History Losartan Potassium [Cozaar] 25 mg PO DAILY 03/10/20 03/10/20 History Omeprazole [PriLOSEC] 20 mg PO DAILY 03/10/20 03/10/20 History Allergies Allergy/AdvReac Type Severity Reaction Status Date / Time meperidine [From Demerol] Allergy Unknown Verified 03/10/20 16:15 iron AdvReac Vomiting Verified 03/10/20 16:15 Physical Exam Vitals: Vital Signs Temp Pulse Pulse Resp BP BP Pulse Ox 03/11/20 12:33 96 03/11/20 12:20 96 03/11/20 08:15 102 H 03/11/20 07:59 100 03/11/20 07:00 97.8 F 86 20 124/67 91 L 03/11/20 04:22 104 H 03/11/20 04:10 90 03/11/20 01:20 97 F L 99 16 121/67 93 L 03/10/20 23:38 86 03/10/20 23:29 86 96 03/10/20 21:45 98.1 F 100 20 106/52 96 03/10/20 20:53 93 03/10/20 20:42 83 03/10/20 19:22 98.7 F 86 18 142/87 93 L 03/10/20 18:44 98.6 F 85 18 151/88 92 L 03/10/20 17:46 89 L 03/10/20 17:45 99.5 F 90 20 156/83 93 L 03/10/20 17:33 84 03/10/20 17:27 80 03/10/20 17:24 81 18 157/95 95 03/10/20 16:15 82 18 157/95 95 03/10/20 15:05 99.1 F 109 H 20 168/93 92 L Intake and Output 03/10/20 03/11/20 03/11/20 22:59 06:59 14:59 Intake Total 480 Balance 480 Intake: Oral 480 Other: Weight 102.058 kg 102.058 kg On physical examination, patient appears comfortable in no apparent distress. HEAD: Normocephalic, atraumatic. EYES: No scleral icterus. No conjunctival injection. MOUTH: No lesions, tongue midline. NECK: Trachea midline, no gross abnormalities. CHEST: Decreased air entry in all lung hernandez. HEART: S1-S2 appreciated. ABDOMEN: Soft, obese. Bowel sounds are positive. No organomegaly. No guarding or rigidity. EXTREMITIES: No pedal edema. SKIN: No rashes, no jaundice. NEUROLOGIC: Alert and oriented x3. No focal deficits. Results CBC & Chem 7: 03/10/20 15:14 03/10/20 15:14 Labs: Abnormal Lab Results - Last 24 Hours (Table) 03/10/20 03/10/20 03/10/20 Range/Units 15:14 15:14 15:14 D-Dimer 0.95 H (<0.60) mg/L FEU Sodium 136 L (137-145) mmol/L Glucose 116 H (74-99) mg/dL Iron 30 L (50-170) ug/dL % Saturation 7.92 L (12.00-45.00) Alkaline Phosphatase 135 H (38-126) U/L CT scan - chest: report reviewed (Large hiatal hernia, no evidence of pulmonary embolism and chest infiltrates consistent with prior CT scans on chest CT on current admission.) Assessment and Plan (1) Hiatal hernia Narrative/Plan: 74-year-old female with multiple medical comorbidities including a prior history of iron deficiency anemia evaluated with EGD and colonoscopy approximately 1 year ago in [place] with findings of a hiatal hernia on EGD and polypectomy on colonoscopy who presented to the hospital due to shortness of breath. Patient was concerned over possible anemia was found to have a clinical 0.9 on presentation. Patient did have bilateral infiltrates and concern was for possible aspiration pneumonia. She has a known history of reflux on omeprazole which she takes every other day. She does report intermittent solid food dysphagia. Unclear if patient is actually aspirating with sessile was pathology and video swallow ordered for further evaluation, did have discussion on benefit of increasing PPI therapy to every day which may help with symptoms of dysphagia and reflux. Current Visit: Yes Status: Acute Code(s): K44.9 - DIAPHRAGMATIC HERNIA WITHOUT OBSTRUCTION OR GANGRENE SNOMED Code(s): 95899941 (2) History of iron deficiency anemia Current Visit: Yes Status: Acute Code(s): Z86.2 - PRSNL HISTORY OF DIS OF THE BLD[facility]BL[facility] Code(s): 344193787 Plan: Supportive care Okay for diet as tolerated Aspiration precautions discussed with the patient at length including sitting upright while eating, subsequent water between meals, small bites and chin tuck Await recommendations from speech language pathology and results of video swallow evaluation Protonix increased to twice a day Continue other medical management Thank you for allowing us to participate in the care of the patient
--- NOTE | 2020-03-12 12:09 | P.DS ---
Providers Date of admission: 03/10/20 17:52 Expected date of discharge: 03/12/20 Attending physician: Evelia Colón DO Consults: 03/10/20 17:55 Consult Physician Urgent Consulting Provider: Lety Parnell Consult Reason/Comments: acyte hypoxic resp failure Do you want consulting provider notified?: Yes 03/11/20 11:43 Consult Physician Routine Consulting Provider: Agnes Portillo Consult Reason/Comments: aspiration/hiatal hernia Do you want consulting provider notified?: Yes Primary care physician: [facility] Course: The patient is a 74-year-old female, never smoker with a PMH of iron deficiency anemia, SVT, hypertension, and hyperlipidemia who presented to the ED with complaints of shortness of breath. The patient notes she has gradually been feeling short of breath with exertion and at rest over the past 2 days. 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 She thereby came to the ED for CBC check. She denied chest discomfort, palpitations, fever, chills, or cough. Also denied recent travel, sick contacts, lower extremity swelling, lower extremity pain. She denied any previous history of interstitial lung disease or pulmonary fibrosis. In the emergency room, she was afebrile and saturating 93% on 2 L is a cannula. Laboratory evaluation revealed a WBC count of 8.6, hemoglobin 12.9, platelets 271, sodium 136, potassium 3.7, BUN 16, creatinine 0.70, glucose 116, alkaline phosphatase 135, troponin less than 0.012, and d-dimer 0.95. A subsequent chest CTA revealed no evidence of pulmonary embolism with a large hiatal hernia and extensive chronic interstitial pulmonary infiltrates, with pulmonary interstitial fibrosis. EKG revealed sinus rhythm with first-degree AV block and 90 bpm with left atrial enlargement and left axis deviation. Her shortness of breath was thought to be related to worsening interstitial lung disease with possible superimposed aspiration pneumonia due to large hiatal hernia. Pulmonology was consulted and recommended Unasyn along with GI consult patient. GI was consulted and recommended barium swallow. Barium swallow was pending at the time of this note. She was given DuoNeb as needed for shortness of breath and wheezing. Rotavirus testing was negative. She was started on Protonix IV twice a day for GERD and hiatal hernia. Her home medications were resumed for hypertension, dyslipidemia and history of SVT. Patient was seen and examined this morning. No acute events overnight. Patient reports considerable improvement in her breathing since admission. She denies any chest pain, shortness breath or palpitations. No nausea or vomiting. No fever or chills. Wanting to go home. General: [non toxic], [no distress], [appears at stated age] Derm: [warm], [dry] Head: [atraumatic], [normocephalic], [symmetric] Eyes: [EOMI], [no lid lag], [anicteric sclera] Mouth: [no lip lesion], [mucus membranes moist] Cardiovascular: [S1S2 reg], [no murmur], [positive posterior tibial pulse bilateral], Lungs: [Decreased breath sounds bilateral], [no rhonchi, no rales] , [no accessory muscle use] Abdominal: [soft], [ nontender to palpation], [no guarding], [no appreciable organomegaly] Ext: [no gross muscle atrophy], [no edema], [no contractures] Neuro: [ CN II-XI grossly intact], [no focal neuro deficits] Psych: [Alert], [oriented], [appropriate affect] Shortness of breath, possibly related to worsening interstitial lung disease with superimposed aspiration pneumonia -Continue cardiac monitoring for now in setting of history of SVT -Pulmonary and GI recommendations appreciated, plans for barium swallow tomorrow -Change Unasyn to Augmentin to complete total of 7 days for discharge -Supplemental oxygen -DuoNeb's when necessary -Coronavirus testing negative Hiatal hernia -GI consulted, plans for barium swallow tomorrow. -Switch Protonix IV to oral for discharge. Chronic conditions: Hypertension, hyperlipidemia, SVT -Continue with home meds DVT prophylaxis -Heparin subq [Patient admitted for shortness of breath. Considerably improved as per patient. Pulmonology on board. GI consulted for hiatal hernia and possible aspiration pneumonia. Barium swallow planned for this afternoon. Plans on DC home today after barium swallow.] Pertinent Studies: Chest x-ray, chest CTA Patient Condition at Discharge: Stable Plan - Discharge Summary Discharge Rx Participant: No New Discharge Prescriptions: New Amoxic-Pot Clav 875-125Mg [Augmentin 875-125] 1 each PO Q12HR #12 tab Butalb/APAP/Caff 50-325-40Mg [Fioricet 50-325-40] 1 each PO Q4HR PRN tab PRN Reason: Headache Continue Losartan Potassium [Cozaar] 25 mg PO DAILY Diltiazem HCl [Cardizem CD] 240 mg PO DAILY Cholecalciferol (Vitamin D3) [Vitamin D3] 50 mcg PO DAILY Atorvastatin [Lipitor] 20 mg PO DAILY Omeprazole [PriLOSEC] 20 mg PO DAILY Discharge Medication List Atorvastatin [Lipitor] 20 mg PO DAILY 03/10/20 [History] Cholecalciferol (Vitamin D3) [Vitamin D3] 50 mcg PO DAILY 03/10/20 [History] Diltiazem HCl [Cardizem CD] 240 mg PO DAILY 03/10/20 [History] Losartan Potassium [Cozaar] 25 mg PO DAILY 03/10/20 [History] Omeprazole [PriLOSEC] 20 mg PO DAILY 03/10/20 [History] Amoxic-Pot Clav 875-125Mg [Augmentin 875-125] 1 each PO Q12HR #12 tab 03/12/20 [Rx] Butalb/APAP/Caff 50-325-40Mg [Fioricet 50-325-40] 1 each PO Q4HR PRN tab 03/12/20 [Rx] Follow up Appointment(s)/Referral(s): Pb Springer MD [STAFF PHYSICIAN] - 03/25/20 2:00 pm Ricci Smith MD [Primary Care Provider] - 03/20/20 12:15 pm Agnes Portillo MD [STAFF PHYSICIAN] - 03/22/20 1:45 pm (Katharine Horne NP. Please wear mask when coming to appointment. Bring Picture ID and Insurance cards. Thank you. ) Patient Instructions/Handouts: Hiatal Hernia (DC), Iron Deficiency Anemia (DC), Hypoxia (GEN), Shortness of Breath (DC) Activity/Diet/Wound Care/Special Instructions: Diet: Low salt FU PCP within 3 days of DC. FU Pulmonology with 1 week of DC. You will need PFT with Pulmonology. FU GI within 1 week of DC. Take all medications as advised. Come back to ED or call 911 for worsening SOB, Chest pain, palpitations, fevers > 100.4F Discharge Disposition: HOME SELF-CARE
[2020-03-12 12:27] VITALS: PULSE 82
--- NOTE | 2020-03-12 13:06 | P.PN ---
Subjective Progress Note Date: 03/12/20 Principal diagnosis: Pulmonary fibrosis 74-year-old white female patient who resides in [place], but spends fair amount of time in [place], with past medical history of iron deficiency anemia, hiatal hernia, his history of SVT, hypertension, hyperlipidemia, chronic back pain, lifetime nonsmoker, and no history of chronic lung disease, presented to the hospital on 03/10/2020 with complaints of exertional shortness of breath. Apparently she was due to be seen by Dr. Sal for her iron deficiency anemia. Patient has been short of breath since Wednesday. She has not been able to follow-up with Dr. Sal since October related to COVID 19 pandemic. She states she has had ongoing problems with difficulty swallowing and she said previous evaluation for dysphagia. She denied any fever or chills, she states she feels like she has no energy, reports some palpitations but states that they're chronic in nature. Chest x-ray revealed large hiatal hernia, interstitial pulmonary infiltrates in the lower lung hernandez, no obvious heart failure. Labs revealed normal CBC, white count is 8.6, hemoglobin is 12.9, coagulation profile was within normal limits, with the slightly elevated d-dimer at 0.95, sodium is 136, the rest of the left psoas and renal profile were within normal limits. Plasma lactic acid was 1.1, iron level was 30, TIBC was 379, iron saturation was 7.92, LFTs were within normal limits, troponin was less than 0.0123. Coronavirus PCR was negative. CTA chest was obtained showing no evidence of pulmonary embolism, large hiatal hernia, patchy groundglass interstitial infiltrates, 2 x 1 cm pretracheal lymph node, no hilar masses, slightly enlarged heart, multiple cysts in the liver, no pleural effusion. Patient reports no history of smoking, in view of her history of dysphagia, and large hiatal hernia chronic aspiration is suspected with extensive scarring present in her lungs. On 03/12/2020 patient seen in follow-up on general medical floor, he is awake and alert, in no acute distress, denies any worsening dyspnea, she remains on supplemental oxygen, currently on 2 L, pulse ox of 95%, denies any fever or chills, denies any cough or congestion, lung sounds are clear on today's exam, she remains on Zosyn for antibiotic coverage, she has been evaluated by GI service for possibility of aspiration, and speech evaluation with the video s wallow evaluation was recommended and is pending today. Otherwise patient is clinically stable, no new labs, her coronavirus PCR was negative, vitals are stable, she has no specific complaints. She is hoping to be able to go home today Objective - Vital Signs Vital signs: Vital Signs Temp 97.9 F 03/12/20 07:10 Pulse 82 03/12/20 12:27 Resp 16 03/12/20 08:03 BP 165/79 03/12/20 07:10 Pulse Ox 95 03/12/20 09:13 Intake & Output 03/11/20 03/12/20 03/12/20 18:59 06:59 18:59 Intake Total 200 Balance 200 Intake: Oral 200 Other: # Voids 3 - Exam GENERAL EXAM: Alert, very pleasant, 74-year-old white female, on 2 L of oxygen with a pulse ox of 95%, comfortable in no apparent distress. HEAD: Normocephalic/atraumatic. EYES: Normal reaction of pupils, equal size. Conjunctiva pink, sclera white. NOSE: Clear with pink turbinates. THROAT: No erythema or exudates. NECK: No masses, no JVD, no thyroid enlargement, no adenopathy. CHEST: No chest wall deformity. Symmetrical expansion. LUNGS: Equal air entry with no crackles, wheeze, rhonchi or dullness. CVS: Regular rate and rhythm, normal S1 and S2, no gallops, no murmurs, no rubs ABDOMEN: Soft, nontender. No hepatosplenomegaly, normal bowel sounds, no guarding or rigidity. EXTREMITIES: No clubbing, no edema, no cyanosis, 2+ pulses and upper and lower extremities. MUSCULOSKELETAL: Muscle strength and tone normal. SPINE: No scoliosis or deformity SKIN: No rashes CENTRAL NERVOUS SYSTEM: Alert and oriented -3. No focal deficits, tone is normal in all 4 extremities. PSYCHIATRIC: Alert and oriented -3. Appropriate affect. Intact judgment and insight. - Labs CBC & Chem 7: 03/10/20 15:14 03/10/20 15:14 Assessment and Plan Plan: Assessment: #1. Acute hypoxic respiratory failure related to pulmonary fibrosis, with suspected chronic aspiration, and possibility aspiration related pneumonia #2. Large hiatal hernia and chronic dysphagia, with suspected secondary aspiration #3. Lifetime nonsmoker #4. Mildly elevated d-dimer, CTA chest negative for evidence of pulmonary embolism #5. Chronic iron deficiency anemia #6. Hypertension #7. Hyperlipidemia #8. History of SVT #9. Chronic back pain Plan: Patient has remained stable overnight, no fever or chills, she is on Zosyn, which we can switch to oral Augmentin, obtain home oxygen assessment. Patient is going for video swallowing evaluation today, and will have a speech evaluation. After the evaluation if she remains stable she canbe considered for discharge home. Follow-up with Dr. Villa in the office in one to 2 weeks I performed a history & physical examination of the patient and discussed their management with my nurse practitioner, Mel Gill. I reviewed the nurse practitioner's note and agree with the documented findings and plan of care. Lung sounds are positive for diminished breath sounds at the bases. The findings and the impression was discussed with the patient. I attest to the documentation by the nurse practitioner. Time with Patient: Less than 30
--- NOTE | 2020-03-12 15:00 | FL ---
ESOPHOGRAM. HISTORY: Dysphagia Esophagram was performed per the single contrast technique. The patient swallowed thin liquid barium without difficulty or delay. Tertiary contractions are noted compatible with presbyesophagus. There is a large hiatal hernia noted with virtually the entire stomach residing within the thorax. There is no evidence for obstruction a s contrast is noted to flow into the duodenum and proximal small bowel. No significant reflux was donte ntified during the course of the study. No evidence for aspiration at this time. IMPRESSION: Large hiatal hernia.
[2020-03-12] MEDS ORDERED: AMOXIC-POT CLAV 875-125MG 1 EACH TAB PO SCH (21:00)
[2020-03-12] MEDS ORDERED: PANTOPRAZOLE 40 MG TABLET PO SCH (21:00)
== END 2020-03-12 15:46 | disposition home or self-care (01) | DRG 177 ==
LOC: EC 15:00 → 5NMEDONC 17:52 → 4SSUR 19:43
PROVIDERS: ADMIT Internal Medicine; ATTEND Internal Medicine
DX: J69.0 Pneumonitis due to inhalation of food and vomit (principal); J96.01 Acute respiratory failure with hypoxia; K21.9 Gastro-esophageal reflux disease without esophagitis; E78.5 Hyperlipidemia, unspecified; I11.9 Hypertensive heart disease without heart failure; D50.9 Iron deficiency anemia, unspecified; I44.0 Atrioventricular block, first degree; G89.29 Other chronic pain; M54.9 Dorsalgia, unspecified; K44.9 Diaphragmatic hernia without obstruction or gangrene; J84.10 Pulmonary fibrosis, unspecified; Z20.828 Contact with and (suspected) exposure to other viral communicable diseases; Z79.899 Other long term (current) drug therapy; Z88.8 Allergy status to other drugs, medicaments and biological substances; Z88.9 Allergy status to unspecified drugs, medicaments and biological substances; Z98.890 Other specified postprocedural states; Z80.0 Family history of malignant neoplasm of digestive organs; Z82.49 Family history of ischemic heart disease and other diseases of the circulatory system
CPT/HCPCS: 36415; 71046; 71275; 74220; 80053; 83540; 83550; 83605; 83735; 84484; 85025; 85379; 85610; 85730; 93005; 94640; 94760; 96365; 96366; 96372; 96375; 99285

== ENCOUNTER → 2020-04-16 | Outpatient (CLI) | payer MEDICARE | END | disposition home or self-care (01) | LOC: CPPFTMAIN 10:17 | PROVIDERS: ATTEND Internal Medicine | DX: J84.9 Interstitial pulmonary disease, unspecified (principal); R94.2 Abnormal results of pulmonary function studies | CPT/HCPCS: 94060; 94726; 94729 ==

== ENCOUNTER 2022-11-22 03:16 | Observation (INO) | payer MEDICARE ==
[2022-11-22] MEDS ORDERED: SODIUM CHLORIDE 0.9% 1,000 ML IV ONE (03:32)
[2022-11-22 03:52] LABS: Basophils # (A) 0.1 k/uL (0-0.2); Basophils % (A) 0 %; Eosinophils # (A) 0.2 k/uL (0-0.7); Eosinophils % (A) 1 %; HCT 41.5 % (34.0-46.0); HGB 13.5 gm/dL (11.4-16.0); Lymphocytes # (A) 1.7 k/uL (1.0-4.8); Lymphocytes % (A) 13 %; MCH 28.2 pg (25.0-35.0); MCHC 32.4 g/dL (31.0-37.0); Monocytes # (A) 0.5 k/uL (0-1.0); Monocytes % (A) 4 %; Neutrophils # (A) 10.4 k/uL (1.3-7.7); Neutrophils % (A) 80 %; Platelet Count 234 k/uL (150-450); RBC 4.77 m/uL (3.80-5.40); RDW 14.9 % (11.5-15.5)
--- NOTE | 2022-11-22 03:58 | XR ---
EXAMINATION TYPE: XR chest 2V DATE OF EXAM: 11/22/2022 COMPARISON: 03/25/2020 HISTORY: Short of breath TECHNIQUE: Single view FINDINGS: There is large hiatal hernia. The lungs are clear of infiltrate. No heart failure. There ar e chest leads. Costophrenic angles are clear. IMPRESSION: Large hiatal hernia. No acute lung disease. No adverse change. There is improved aeration of the lower lung hernandez compared to old exam.
[2022-11-22 04:00] LABS: Partial Thromboplastin Time 23.7 sec (22.0-30.0); Prothrombin Time 10.9 sec (9.0-12.0)
[2022-11-22 04:02] LABS: ALT 24 U/L (4-34); AST 35 U/L (14-36); African American GFR (CKD) >90 (>60 ml/min/1.73 sqM); Alkaline Phosphatase 112 U/L (38-126); Anion Gap 5 mmol/L; Blood Urea Nitrogen 22 mg/dL (7-17); Calcium 8.6 mg/dL (8.4-10.2); Carbon Dioxide 25 mmol/L (22-30); Chloride 108 mmol/L (98-107); Glucose 122 mg/dL (74-99); Lipase 58 U/L (23-300); Magnesium 1.7 mg/dL (1.6-2.3); Non-African American GFR(CKD) 90 (>60 ml/min/1.73 sqM); Sodium 138 mmol/L (137-145); Total Bilirubin 0.7 mg/dL (0.2-1.3); Total Protein 6.7 g/dL (6.3-8.2)
[2022-11-22 04:11] LABS: Potassium 3.9 mmol/L (3.5-5.1)
--- NOTE | 2022-11-22 04:28 | ED ---
General Adult HPI - General Chief complaint: Dizziness Stated complaint: Dizziness Time Seen by Provider: 11/22/22 03:22 Source: patient, EMS Mode of arrival: EMS - History of Present Illness Initial comments: This is a 77-year-old female with a past medical history including diabetes, hypertension and hyperlipidemia presents emergency department for an episode of vertigo. The patient stated that she was watching TV when she started to have room spinning momentarily. The patient stated that this scared her so she called EMS for evaluation in the emergency department. On arrival, the patient was not headed or dizzy but stated that she had some minor lightheadedness with sitting upright. The patient stated that she has had episodes of vertigo prior. The patient denied any recent sick contacts and denied any recent symptoms of congestion, cough. The patient was however resting in bed comfortably without any further acute pain or complaints. - Related Data Home Medications Medication Instructions Recorded Confirmed Atorvastatin [Lipitor] 20 mg PO DAILY 03/10/20 03/10/20 Cholecalciferol (Vitamin D3) 50 mcg PO DAILY 03/10/20 03/10/20 [Vitamin D3] Losartan Potassium [Cozaar] 25 mg PO DAILY 03/10/20 03/10/20 Omeprazole [PriLOSEC] 20 mg PO DAILY 03/10/20 03/10/20 dilTIAZem HCL [Cardizem CD] 240 mg PO DAILY 03/10/20 03/10/20 Previous Rx's Medication Instructions Recorded Amoxic-Pot Clav 875-125Mg 1 each PO Q12HR #12 tab 03/12/20 [Augmentin 875-125] Butalb/APAP/Caff 50-325-40Mg 1 each PO Q4HR PRN tab 03/12/20 [Fioricet 50-325-40] Allergies Allergy/AdvReac Type Severity Reaction Status Date / Time meperidine [From Demerol] Allergy Unknown Verified 03/10/20 16:15 iron AdvReac Vomiting Verified 03/10/20 16:15 Review of Systems ROS Statement: Those systems with pertinent positive or pertinent negative responses have been documented in the HPI. ROS Other: All systems not noted in ROS Statement are negative. Past Medical History Past Medical History: Diabetes Mellitus, Hyperlipidemia, Hypertension, Supraventricular Tachycardia (SVT) Additional Past Medical History / Comment(s): Iron deficiency anemia, SVT, vasovagal, prolapsed uterus History of Any Multi-Drug Resistant Organisms: None Reported Past Surgical History: Back Surgery Additional Past Surgical History / Comment(s): ankle surgery, cataract surgery Past Anesthesia/Blood Transfusion Reactions: No Reported Reaction Past Psychological History: No Psychological Hx Reported Past Alcohol Use History: None Reported Past Drug Use History: None Reported - Past Family History Mother Additional Family Medical History / Comment(s): heart problems Sister(s) Family Medical History: Cancer Additional Family Medical History / Comment(s): of pancreatic cancer General Exam Limitations: no limitations General appearance: alert, in no apparent distress, obese Head exam: Present: atraumatic, normocephalic, normal inspection Eye exam: Present: normal appearance, PERRL Pupils: Present: normal accommodation ENT exam: Present: normal exam, normal oropharynx, mucous membranes moist Neck exam: Present: normal inspection, full ROM Respiratory exam: Present: normal lung sounds bilaterally Cardiovascular Exam: Present: regular rate, normal rhythm, normal heart sounds GI/Abdominal exam: Present: soft, normal bowel sounds Extremities exam: Present: normal inspection, full ROM Back exam: Present: normal inspection, full ROM Neurological exam: Present: alert, oriented X3, CN II-XII intact Psychiatric exam: Present: normal affect, normal mood Skin exam: Present: warm, dry Course Vital Signs 11/22/22 11/22/22 11/22/22 03:21 05:22 05:30 Temperature 97.4 F L Pulse Rate 80 68 72 Respiratory 18 18 16 Rate Blood Pressure 128/88 128/96 108/83 O2 Sat by Pulse 92 L 92 L 9 L Oximetry 11/22/22 06:00 Temperature Pulse Rate Respiratory Rate Blood Pressure O2 Sat by Pulse 96 Oximetry EKG Findings - EKG Comments: EKG Findings:: An EKG was obtained and was interpreted by myself showing a rate of 73, VA interval of 241, QRS duration of 93 and QTC of 433. This EKG showed a normal sinus rhythm with a first-degree AV block. There was no ST segment elevations or depressions noted however. Medical Decision Making - Medical Decision Making Was pt. sent in by a medical professional or institution (, PA, SCHOOL COMMISSIONER, urgent care, hospital, or skilled nursing...) When possible be specific @ -No Did you speak to anyone other than the patient for history (EMS, parent, family, police, friend...)? What history was obtained from this source @ -Yes, patient's , EMS Did you review nursing and triage notes (agree or disagree)? Why? @ -I reviewed and agree with nursing and triage notes Were old charts reviewed (outside hosp., previous admission, EMS record, old EKG, old radiological studies, urgent care reports/EKG's, skilled nursing records)? Report findings @ -No old charts were reviewed Differential Diagnosis (chest pain, altered mental status, abdominal pain women, abdominal pain men, vaginal bleeding, weakness, fever, dyspnea, syncope, headache, dizziness, GI bleed, back pain, seizure, CVA, palpatations, mental health)? @ -UTI, Covid 19, pneumonia EKG interpreted by me (3pts min.). @ -As above X-rays interpreted by me (1pt min.). @ -Chest x-ray was obtained and was interpreted by myself showing a large hiatal hernia. There was no acute lung disease. There is no adverse changes. There is improved duration of the lower lung hernandez compared to old exam. CT interpreted by me (1pt min.). @ -None done U/S interpreted by me (1pt. min.). @ -None done What testing was considered but not performed or refused? (CT, X-rays, U/S, labs)? Why? @ -None What meds were considered but not given or refused? Why? @ -None Did you discuss the management of the patient with other professionals (professionals i.e. , PA, SCHOOL COMMISSIONER, lab, RT, psych nurse, dialysis social worker, research librarian, teacher, forest fire management officer, manager of case management)? Give summary @ -Yes, admitting physician Was smoking cessation discussed for >3mins.? @ -No Was critical care preformed (if so, how long)? @ -No Were there social determinants of health that impacted care today? How? (Homelessness, low income, unemployed, alcoholism, drug addiction, transpo rtation, low edu. Level, literacy, decrease access to med. care, retirement, rehab)? @ -No Was there de-escalation of care discussed even if they declined (Discuss DNR or withdrawal of care, Hospice)? DNR status @ -No What co-morbidities impacted this encounter? (DM, HTN, Smoking, COPD, CAD, Cancer, CVA, ARF, Chemo, Hep., AIDS, mental health diagnosis, sleep apnea, morbid obesity)? @ -Hypertension, diabetes, hyperlipidemia Was patient admitted / discharged? Hospital course, mention meds given and route, prescriptions, significant lab abnormalities, going to OR and other pertinent info. @ -The patient was seen and evaluated in the emergency department. On physical exam, the patient was resting in bed comfortably. Vital signs admission were stable. Laboratory workup was obtained and was largely within normal limits. Urinalysis did show a UTI. The patient continued to remain stable and was ambulated in the emergency department however stated that she had increasing weakness and felt that she was about to pass out within 5 feet of walking. Due to this in the setting of a UTI and the patient not feeling comfortable to go home, the patient will be placed in observation for further workup and evaluation. The patient did receive 1 g of Rocephin. The patient and her were appreciative of this plan and the patient was placed observation in stable condition. Undiagnosed new problem with uncertain prognosis? @ -No Drug Therapy requiring intensive monitoring for toxicity (Heparin, Nitro, I nsulin, Cardizem)? @ -No Were any procedures done? @ -No Diagnosis/symptom? @ -Weakness with UTI Acute, or Chronic, or Acute on Chronic? @ -Acute Uncomplicated (without systemic symptoms) or Complicated (systemic symptoms)? @ -Complicated Side effects of treatment? @ -No Exacerbation, Progression, or Severe Exacerbation? @ -No Poses a threat to life or bodily function? How? (Chest pain, USA, HI, pneumonia, PE, COPD, DKA, ARF, appy, cholecystitis, CVA, Diverticulitis, Homicidal, Suicidal, threat to staff... and all critical care pts) @ -No - Lab Data Result diagrams: 11/22/22 03:42 11/22/22 03:42 Lab Results 11/22/22 11/22/22 11/22/22 Range/Units 03:42 03:42 03:42 WBC 13.0 H (3.8-10.6) k/uL RBC 4.77 (3.80-5.40) m/uL Hgb 13.5 (11.4-16.0) gm/dL Hct 41.5 (34.0-46.0) % MCV 87.0 (80.0-100.0) fL MCH 28.2 (25.0-35.0) pg MCHC 32.4 (31.0-37.0) g/dL RDW 14.9 (11.5-15.5) % Plt Count 234 (150-450) k/uL MPV 10.0 Neutrophils % 80 % Lymphocytes % 13 % Monocytes % 4 % Eosinophils % 1 % Basophils % 0 % Neutrophils # 10.4 H (1.3-7.7) k/uL Lymphocytes # 1.7 (1.0-4.8) k/uL Monocytes # 0.5 (0-1.0) k/uL Eosinophils # 0.2 (0-0.7) k/uL Basophils # 0.1 (0-0.2) k/uL PT 10.9 (9.0-12.0) sec INR 1.0 (<1.2) APTT 23.7 (22.0-30.0) sec Sodium 138 (137-145) mmol/L Potassium 3.9 (3.5-5.1) mmol/L Chloride 108 H (98-107) mmol/L Carbon Dioxide 25 (22-30) mmol/L Anion Gap 5 mmol/L BUN 22 H (7-17) mg/dL Creatinine 0.56 (0.52-1.04) mg/dL Est GFR (CKD-EPI)AfAm >90 (>60 ml/min/1.73 sqM) Est GFR (CKD-EPI)NonAf 90 (>60 ml/min/1.73 sqM) Glucose 122 H (74-99) mg/dL POC Glucose (mg/dL) (70-110) mg/dL POC Glu Client Specialist ID Calcium 8.6 (8.4-10.2) mg/dL Magnesium 1.7 (1.6-2.3) mg/dL Total Bilirubin 0.7 (0.2-1.3) mg/dL AST 35 (14-36) U/L ALT 24 (4-34) U/L Alkaline Phosphatase 112 (38-126) U/L Troponin I (0.000-0.034) ng/mL NT-Pro-B Natriuret Pep pg/mL Total Protein 6.7 (6.3-8.2) g/dL Albumin 4.0 (3.5-5.0) g/dL Lipase 58 (23-300) U/L Urine Color Urine Appearance (Clear) Urine pH (5.0-8.0) Ur Specific [place] (1.001-1.035) Urine Protein (Negative) Urine Glucose (UA) (Negative) Urine Ketones (Negative) Urine Blood (Negative) Urine Nitrite (Negative) Urine Bilirubin (Negative) Urine Urobilinogen (<2.0) mg/dL Ur Leukocyte Esterase (Negative) Urine RBC (0-5) /hpf Urine WBC (0-5) /hpf Urine WBC Clumps (None) /hpf Ur Squamous Epith Cells (0-4) /hpf Urine Bacteria (None) /hpf Influenza Type A (PCR) (Not Detectd) Influenza Type B (PCR) (Not Detectd) RSV (PCR) (Not Detectd) SARS-CoV-2 (PCR) (Not Detectd) 11/22/22 11/22/22 11/22/22 Range/Units 03:42 03:42 04:59 WBC (3.8-10.6) k/uL RBC (3.80-5.40) m/uL Hgb (11.4-16.0) gm/dL Hct (34.0-46.0) % MCV (80.0-100.0) fL MCH (25.0-35.0) pg MCHC (31.0-37.0) g/dL RDW (11.5-15.5) % Plt Count (150-450) k/uL MPV Neutrophils % % Lymphocytes % % Monocytes % % Eosinophils % % Basophils % % Neutrophils # (1.3-7.7) k/uL Lymphocytes # (1.0-4.8) k/uL Monocytes # (0-1.0) k/uL Eosinophils # (0-0.7) k/uL Basophils # (0-0.2) k/uL PT (9.0-12.0) sec INR (<1.2) APTT (22.0-30.0) sec Sodium (137-145) mmol/L Potassium (3.5-5.1) mmol/L Chloride (98-107) mmol/L Carbon Dioxide (22-30) mmol/L Anion Gap mmol/L BUN (7-17) mg/dL Creatinine (0.52-1.04) mg/dL Est GFR (CKD-EPI)AfAm (>60 ml/min/1.73 sqM) Est GFR (CKD-EPI)NonAf (>60 ml/min/1.73 sqM) Glucose (74-99) mg/dL POC Glucose (mg/dL) (70-110) mg/dL POC Glu Client Specialist ID Calcium (8.4-10.2) mg/dL Magnesium (1.6-2.3) mg/dL Total Bilirubin (0.2-1.3) mg/dL AST (14-36) U/L ALT (4-34) U/L Alkaline Phosphatase (38-126) U/L Troponin I 0.018 (0.000-0.034) ng/mL NT-Pro-B Natriuret Pep 28 pg/mL Total Protein (6.3-8.2) g/dL Albumin (3.5-5.0) g/dL Lipase (23-300) U/L Urine Color Yellow Urine Appearance Clear (Clear) Urine pH 5.5 (5.0-8.0) Ur Specific [place] 1.016 (1.001-1.035) Urine Protein Negative (Negative) Urine Glucose (UA) Negative (Negative) Urine Ketones Negative (Negative) Urine Blood Negative (Negative) Urine Nitrite Positive H (Negative) Urine Bilirubin Negative (Negative) Urine Urobilinogen <2.0 (<2.0) mg/dL Ur Leukocyte Esterase Moderate H (Negative) Urine RBC 2 (0-5) /hpf Urine WBC 45 H (0-5) /hpf Urine WBC Clumps Rare H (None) /hpf Ur Squamous Epith Cells <1 (0-4) /hpf Urine Bacteria Few H (None) /hpf Influenza Type A (PCR) (Not Detectd) Influenza Type B (PCR) (Not Detectd) RSV (PCR) (Not Detectd) SARS-CoV-2 (PCR) (Not Detectd) 11/22/22 11/22/22 Range/Units 05:10 05:10 WBC (3.8-10.6) k/uL RBC (3.80-5.40) m/uL Hgb (11.4-16.0) gm/dL Hct (34.0-46.0) % MCV (80.0-100.0) fL MCH (25.0-35.0) pg MCHC (31.0-37.0) g/dL RDW (11.5-15.5) % Plt Count (150-450) k/uL MPV Neutrophils % % Lymphocytes % % Monocytes % % Eosinophils % % Basophils % % Neutrophils # (1.3-7.7) k/uL Lymphocytes # (1.0-4.8) k/uL Monocytes # (0-1.0) k/uL Eosinophils # (0-0.7) k/uL Basophils # (0-0.2) k/uL PT (9.0-12.0) sec INR (<1.2) APTT (22.0-30.0) sec Sodium (137-145) mmol/L Potassium (3.5-5.1) mmol/L Chloride (98-107) mmol/L Carbon Dioxide (22-30) mmol/L Anion Gap mmol/L BUN (7-17) mg/dL Creatinine (0.52-1.04) mg/dL Est GFR (CKD-EPI)AfAm (>60 ml/min/1.73 sqM) Est GFR (CKD-EPI)NonAf (>60 ml/min/1.73 sqM) Glucose (74-99) mg/dL POC Glucose (mg/dL) 146 H (70-110) mg/dL POC Glu Client Specialist ID Oniel Zapata Calcium (8.4-10.2) mg/dL Magnesium (1.6-2.3) mg/dL Total Bilirubin (0.2-1.3) mg/dL AST (14-36) U/L ALT (4-34) U/L Alkaline Phosphatase (38-126) U/L Troponin I (0.000-0.034) ng/mL NT-Pro-B Natriuret Pep pg/mL Total Protein (6.3-8.2) g/dL Albumin (3.5-5.0) g/dL Lipase (23-300) U/L Urine Color Urine Appearance (Clear) Urine pH (5.0-8.0) Ur Specific [place] (1.001-1.035) Urine Protein (Negative) Urine Glucose (UA) (Negative) Urine Ketones (Negative) Urine Blood (Negative) Urine Nitrite (Negative) Urine Bilirubin (Negative) Urine Urobilinogen (<2.0) mg/dL Ur Leukocyte Esterase (Negative) Urine RBC (0-5) /hpf Urine WBC (0-5) /hpf Urine WBC Clumps (None) /hpf Ur Squamous Epith Cells (0-4) /hpf Urine Bacteria (None) /hpf Influenza Type A (PCR) Not Detected (Not Detectd) Influenza Type B (PCR) Not Detected (Not Detectd) RSV (PCR) Not Detected (Not Detectd) SARS-CoV-2 (PCR) Not Detected (Not Detectd) Disposition Clinical Impression: Weakness, UTI (urinary tract infection) Disposition: ADMITTED IP TO THIS [facility] Condition: Stable Is patient prescribed a controlled substance at d/c from ED?: No Referrals: None,Stated [Primary Care Provider] - 1-2 days Time of Disposition: 06:00 Decision to Admit Reason: Admit from EC Decision Date: 11/22/22 Decision Time: 06:00
[2022-11-22 05:12] LABS: Glucose,Whole Blood 146 mg/dL (70-110)
[2022-11-22 05:18] LABS: Appearance,Urine Clear (Clear); Bacteria,Urine Few /hpf; Bilirubin,Urine Negative (Negative); Blood,Urine Negative (Negative); Color,Urine Yellow; Glucose,Urine (UA) Negative (Negative); Ketones,Urine Negative (Negative); Leukocyte Esterase,Urine Moderate (Negative); Nitrite,Urine Positive (Negative); PH, Urine 5.5 (5.0-8.0); Protein,Urine Negative (Negative); RBC,Urine 2 /hpf (0-5); Specific Gravity,Urine 1.016 (1.001-1.035); Squamous Epithelial Cell,Urine <1 /hpf (0-4); Urobilinogen,Urine <2.0 mg/dL (<2.0); WBC,Urine 45 /hpf (0-5)
[2022-11-22] MEDS ORDERED: cefTRIAXone IN SWFI 1,000 MG/10 ML SYRINGE IVP STA (05:47)
[2022-11-22] MEDS ORDERED: NALOXONE 0.4 MG/ML 1 ML VIAL IV PRN (06:17)
[2022-11-22] MEDS ORDERED: MELATONIN 3 MG TABLET PO PRN (08:38)
[2022-11-22] MEDS ORDERED: ACETAMINOPHEN TAB 325 MG TAB PO PRN (08:38)
[2022-11-22] MEDS ORDERED: ATORVASTATIN 20 MG TAB PO SCH (09:00)
[2022-11-22] MEDS: SODIUM CHLORIDE 0.9% 1,000 ML IV SCH ×2 (09:24→18:44)
[2022-11-22] MEDS: DILTIAZEM CD 240 MG CAP.ER.24H PO SCH (09:24)
[2022-11-22] MEDS: ENOXAPARIN 40 MG/0.4 ML SYRINGE SQ SCH (09:24)
[2022-11-22] MEDS: LOSARTAN 25 MG TAB PO SCH (09:24)
[2022-11-22 12:37] LABS: Glucose,Whole Blood 96 mg/dL (70-110)
--- NOTE | 2022-11-22 13:48 | P.HPIM ---
History of Present Illness H&P Date: 11/22/22 History of Presenting Illness: Patient is a very pleasant 77-year-old female with a past medical history of hypertension, hyperlipidemia, nonsustained SVT, iron deficiency anemia, and dhs-ajgwfwz-vsijqdrdt diabetes mellitus type 2. She presented to the emergency department this morning secondary to reports of generalized weakness and an isolated episode of vertigo. Patient reports that she was sitting down watching TV and had the urge to use the restroom and upon standing she became slightly dizzy so she sat back down. Patient reports she has had similar episodes of vertigo like this and currently reports of dizziness/lightheadedness has resolve d only lasting momentarily. Patient does report having a decreased oral intake with fluids along with urinary frequency and urgency. She denies having any fevers, chills, diaphoresis headache, changes in vision or hearing, cough or congestion, chest pain, palpitations, shortness of breath, nausea, vomiting, hematuria, dysuria, or experiencing any numbness/tingling/weakness/swelling in her extremities. She underwent full evaluation in the emergency department. Labs completed and reviewed. CBC revealed mild leukocytosis with WBC count of 13.0. BMP revealing hyperchloremia with chloride of 108, prerenal azotemia with BUN of 22, and mild hyperglycemia with glucose of 122. Influenza A, influenza B, RSV, and Covid PCR were negative. Urinalysis was concerning for infection. EKG was completed showing normal sinus mechanism at 73 bpm with a first-degree AV block with MI interval of 241 ms and no noted T-wave or ST abnormalities upon personal review and interpretation. Case was discussed thoroughly with the ED physician. Patient was admitted under our services for treatment of urinary tract infection with consultation to physical and occupational therapy. Patient does report she lives at home with her and daughter and typically walks with a walker. She reports having plenty of support in her home. Review of systems: Pertinent positives and negatives as discussed in HPI, a complete review of systems was performed and all other systems are negative. Physical exam: Vital signs reviewed and stable. General: Nontoxic, no distress and appears stated age. Derm: Skin warm and dry, normal coloration for ethnicity. Head: Atraumatic, normocephalic and symmetric. Eyes: EOMs intact, no lid lag, and anicteric sclera Mouth: no lip lesions, mucus membranes moist Cardiovascular: regular rate and rhythm with normal S1S2, systolic murmur, positive posterior tibial pulses bilaterally, and cap refill < 2 seconds. Lungs: Respirations even, regular, and unlabored on room air. Lungs CTA bilaterally, no rhonchi, no rales, no wheezing, and no accessory muscle usage. Abdominal: soft, nontender to palpation, no guarding, no appreciable organomegaly Ext: ROM intact. No gross muscle atrophy, no edema, no contractures Neuro: Speech clear, face symmetrical and CN II-XII grossly intact with no noted focal neuro deficits Psych: Alert and oriented to person, place, time, and situation. Appropriate and pleasant affect. Assessment and Plan of Care: Labs completed and reviewed. CBC revealed mild leukocytosis with WBC count of 13.0. BMP revealing hyperchloremia with chloride of 108, prerenal azotemia with BUN of 22, and mild hyperglycemia with glucose of 122. Influenza A, influenza B, RSV, and Covid PCR were negative. Urinalysis was concerning for infection. EKG was completed showing normal sinus mechanism at 73 bpm with a first-degree AV block with MI interval of 241 ms and no noted T-wave or ST abnormalities upon personal review and interpretation. Case was discussed thoroughly with the ED physician. Patient was admitted under our services for treatment of urinary tract infection with consultation to physical and occupational therapy. Urinary tract infection reports of urgency and frequency Transient episode of dizziness, unclear etiology possibly secondary to mild dehydration versus adverse effects of medications Generalized weakness Prerenal azotemia and mild dehydration -Patient admitted to general medical observation unit with telemetry. -Continue IV antibiotics with Rocephin 1 g daily IVPB for treatment of UTI. -Order placed for gentle IV fluid hydration with 0.9% normal saline at 100 mL per hour for treatment of mild dehydration and prerenal azotemia. -Hold Fioricet, [place], Robaxin, and rizatriptan due to common adverse reactions of dizziness/lightheadedness -Orthostatic vitals reviewed and were negative -Fall precautions in place. -Order placed for consult to physical and occupational therapy for evaluation. -Plan to monitor overnight on telemetry monitoring with gentle IV fluid hydration, if patient remains stable with no further episodes of dizzi ness/lightheadedness likely discharge within the next 24 hours. Chronic conditions: Hypertension. Vital signs stable. Home medications reviewed and orders placed to resume daily medication regimen with losartan 25 mg daily. Hyperlipidemia. Order placed to resume home medication regimen with atorvastatin 40 mg nightly. History of Nonsustained SVT. Home medications reviewed and patient to continue daily medication regimen with Cardizem 240 mg daily. Iron deficiency anemia. Hemoglobin stable at 13.5. Xtr-tnaafpf-jjdzzslwo diabetes mellitus, reports diet controlled. Blood glucose 122. The patient is admitted with an anticipated less than 2 midnight stay for evaluation of urinary tract infection and transient episode of dizziness CODE STATUS: Full code DVT prophylaxis: Lovenox Discussed with: patient, RN, ED physician Anticipated discharge date: tomorr morning Anticipated discharge place: home with home care Patient was seen independently by Nurse Practitioner. This document was prepared using [employer] dictation software. Please allow for errors in network control operator while rare they do occur. I reviewed the documentation as provided by the MARISABEL above, who is the original author of this note. I agree with the documented assessment and plan, with the following changes: none Past Medical History Past Medical History: Diabetes Mellitus, Hyperlipidemia, Hypertension, Supraventricular Tachycardia (SVT) Additional Past Medical History / Comment(s): Iron deficiency anemia, SVT, vasovagal, prolapsed uterus History of Any Multi-Drug Resistant Organisms: None Reported Past Surgical History: Back Surgery Additional Past Surgical History / Comment(s): ankle surgery, cataract surgery Past Anesthesia/Blood Transfusion Reactions: No Reported Reaction Past Psychological History: No Psychological Hx Reported Past Alcohol Use History: None Reported Past Drug Use History: None Reported - Past Family History Mother Additional Family Medical History / Comment(s): heart problems Sister(s) Family Medical History: Cancer Additional Family Medical History / Comment(s): of pancreatic cancer Medications and Allergies Home Medications Medication Instructions Recorded Confirmed Type Cholecalciferol (Vitamin D3) 50 mcg PO DAILY 03/10/20 11/22/22 History [Vitamin D3] Losartan Potassium [Cozaar] 25 mg PO DAILY 03/10/20 11/22/22 History Omeprazole [PriLOSEC] 20 mg PO DAILY 03/10/20 11/22/22 History dilTIAZem HCL [Cardizem CD] 240 mg PO DAILY 03/10/20 11/22/22 History Atorvastatin [Lipitor] 40 mg PO DAILY 11/22/22 11/22/22 History Butalb/APAP/Caff 50-325-40Mg 1 tab PO DAILY PRN 11/22/22 11/22/22 History [Fioricet 50-325-40] Cyanocobalamin (Vitamin B-12) 1,000 mcg PO DAILY 11/22/22 11/22/22 History [Vitamin B-12] Ezetimibe [Zetia] 10 mg PO DAILY 11/22/22 11/22/22 History HYDROcodone/APAP 5-325MG [[place] 1 tab PO TID PRN 11/22/22 11/22/22 History 5-325] Rizatriptan Benzoate [Rizatriptan] 10 mg PO BID PRN MDD 20 mg 11/22/22 11/22/22 History methocarbamoL [Robaxin] 500 mg PO TID PRN 11/22/22 11/22/22 History Allergies Allergy/AdvReac Type Severity Reaction Status Date / Time meperidine [From Demerol] Allergy Unknown Verified 11/22/22 11:04 amoxicillin [From Augmentin] AdvReac Flu like Verified 11/22/22 11:04 symptoms, Nausea, dizziness clavulanic acid AdvReac Flu like Verified 11/22/22 11:04 [From Augmentin] symptoms, Nausea, dizziness iron AdvReac Vomiting Verified 11/22/22 11:04 Physical Exam Osteopathic Statement: *. No significant issues noted on an osteopathic structural exam other than those noted in the History and Physical/Consult. Vitals: Vital Signs Temp Pulse Pulse Resp BP BP Pulse Ox 11/22/22 06:30 68 16 130/78 96 11/22/22 06:00 66 20 108/83 96 11/22/22 05:45 98 F 77 18 145/78 95 11/22/22 05:30 72 16 108/83 9 L 11/22/22 05:22 68 18 128/96 92 L 11/22/22 03:21 97.4 F L 80 18 128/88 92 L Intake and Output 11/21/22 11/22/22 11/22/22 21:59 06:59 14:59 Other: Weight Results CBC & Chem 7: 11/22/22 03:42 11/22/22 03:42 Labs: Abnormal Lab Results - Last 24 Hours (Table) 11/22/22 11/22/22 11/22/22 Range/Units 03:42 03:42 04:59 WBC 13.0 H (3.8-10.6) k/uL Neutrophils # 10.4 H (1.3-7.7) k/uL Chloride 108 H (98-107) mmol/L BUN 22 H (7-17) mg/dL Glucose 122 H (74-99) mg/dL POC Glucose (mg/dL) (70-110) mg/dL Urine Nitrite Positive H (Negative) Ur Leukocyte Esterase Moderate H (Negative) Urine WBC 45 H (0-5) /hpf Urine WBC Clumps Rare H (None) /hpf Urine Bacteria Few H (None) /hpf 11/22/22 Range/Units 05:10 WBC (3.8-10.6) k/uL Neutrophils # (1.3-7.7) k/uL Chloride (98-107) mmol/L BUN (7-17) mg/dL Glucose (74-99) mg/dL POC Glucose (mg/dL) 146 H (70-110) mg/dL Urine Nitrite (Negative) Ur Leukocyte Esterase (Negative) Urine WBC (0-5) /hpf Urine WBC Clumps (None) /hpf Urine Bacteria (None) /hpf
[2022-11-22 17:31] LABS: Glucose,Whole Blood 90 mg/dL (70-110)
[2022-11-22 20:36] LABS: Glucose,Whole Blood 130 mg/dL (70-110)
[2022-11-23] MEDS: SODIUM CHLORIDE 0.9% 1,000 ML IV SCH ×2 (05:41→13:01)
[2022-11-23 07:29] LABS: Glucose,Whole Blood 103 mg/dL (70-110)
[2022-11-23] MEDS ORDERED: ATORVASTATIN 40 MG TAB PO SCH (09:00)
[2022-11-23] MEDS ORDERED: PANTOPRAZOLE 40 MG TABLET PO SCH (09:00)
[2022-11-23] MEDS ORDERED: EZETIMIBE 10 MG TAB PO SCH (09:00)
[2022-11-23] MEDS: LOSARTAN 25 MG TAB PO SCH (09:15)
[2022-11-23] MEDS: ENOXAPARIN 40 MG/0.4 ML SYRINGE SQ SCH (09:15)
[2022-11-23] MEDS: DILTIAZEM CD 240 MG CAP.ER.24H PO SCH (09:15)
[2022-11-23 11:13] LABS: Glucose,Whole Blood 159 mg/dL (70-110)
[2022-11-23 12:13] VITALS: BP 125/86; PULSE 68; RESP 18; TEMP 98.5
--- NOTE | 2022-11-23 13:15 | P.DS ---
Providers Date of admission: 11/22/22 06:17 Expected date of discharge: 11/23/22 Attending physician: Melany Nichole MD Primary care physician: Stated None Hospital Course: Discharge Diagnosis: Urinary tract infection. Complete 3 day course of antibiotics. Patient discharged home on Cefdinir 300 mg twice daily. Transient episode of dizziness, unclear etiology possibly secondary to mild dehydration versus adverse effects of medications. Believed to be secondary to dehydration and patient does report decreased oral intake especially with fluids since previous diagnosis with hiatal hernia. Patient encouraged to keep self hydrated, change positions slowly, and walk with walker at all times. Generalized weakness, resolved with IV fluid hydration. Prerenal azotemia and mild dehydration. Treated with IV fluid hydration. Hypertension. Vital signs stable. Continue daily medication regimen with losartan 25 mg daily. Hyperlipidemia. Continue home medication regimen with atorvastatin 40 mg nightly. History of Nonsustained SVT. Continue daily medication regimen with Cardizem 240 mg daily. Iron deficiency anemia. Hemoglobin stable at 13.5. Kni-fqgtelo-nuvqgvupc diabetes mellitus, reports diet controlled. Blood glucose levels stable 90-159 throughout hospitalization.. Continue a heart healthy and carb consistent diet. Hospital Course: Patient is a very pleasant 77-year-old female with a past medical history of hypertension, hyperlipidemia, nonsustained SVT, iron deficiency anemia, and ixk-xuewkig-nhdpjfrqq diabetes mellitus type 2. She presented to the emergency department this morning secondary to reports of generalized weakness and an isolated episode of vertigo. Patient reports that she was sitting down watching TV and fell asleep and suddenly had the urge to use the restroom and upon sitting up she became slightly dizzy so she sat back down and asked for assistance to be lowered down to the floor because she reported that when she lies on the floor and closes her eyes, the dizziness always goes away. Patient states the dizziness did completely subside just as it had with similar episodes of vertigo in the past. Patient states they're currently homeless and staying at a friend's cabin and have placed offers on [place] but awaiting for one to be accepted. She states this has caused increased stress and also reports having a decreased oral intake with fluids since her previous diagnosis of hiatal hernia and reports always having urinary frequency and urgency. She denies having any fevers, chills, diaphoresis headache, changes in vision or hearing, cough or congestion, chest pain, palpitations, shortness of breath, nausea, vomiting, hematuria, dysuria, or experiencing any numbness/tingling/weakness/swelling in her extremities. She underwent full evaluation in the emergency department. Labs completed and reviewed. CBC revealed mild leukocytosis with WBC count of 13.0. BMP revealing hyperchloremia with chloride of 108, prerenal azotemia with BUN of 22, and mild hyperglycemia with glucose of 122. Influenza A, influenza B, RSV, and Covid PCR were negative. Urinalysis was concerning for infection. EKG was completed showing normal sinus mechanism at 73 bpm with a first-degree AV block with HI interval of 241 ms and no noted T-wave or ST abnormalities upon personal review and interpretation. Case was discussed thoroughly with the ED physician. Patient was admitted under our services for treatment of urinary tract infection with consultation to physical and occupational therapy. She received gentle IV fluid hydration overnight along with 2 doses of IV antibiotics with Rocephin for treatment of UTI. Patient continues to deny having any further episodes of dizziness/lightheadedness since arrival to our facility, orthostatic vitals are negative, patient free from any and all complaints at this time stating that she feels fantastic and is ready to go home. She was evaluated by physical therapy stating patient has no functional limits and is modified independent recommending ambulating with a rolling walker. Patient states that she has a rolling walker at home and has plenty of support from her and daughter. Medically, patient is stable for discharge at this time. Patient instructed if dizziness/lightheadedness returns or she develops any other complaints or concerns she is to return to the emergency department immediately for further evaluation. Patient is new to this area from [place] and requested information for follow-up with physicians. Meka lewis provided information to establish care and follow-up with PCP, and provided with information as requested for establishing care with tax audit manager, ict business development manager, orthopedic/orthospine physician, and general surgeon. Physical exam: Vital signs reviewed and stable. General: Nontoxic, no distress and appears stated age. Derm: Skin warm and dry, normal coloration for ethnicity. Head: Atraumatic, normocephalic and symmetric. Eyes: EOMs intact, no lid lag, and anicteric sclera Mouth: no lip lesions, mucus membranes moist Cardiovascular: regular rate and rhythm with normal S1S2, systolic murmur, positive posterior tibial pulses bilaterally, and cap refill < 2 seconds. Lungs: Respirations even, regular, and unlabored on room air. Lungs CTA bilaterally, no rhonchi, no rales, no wheezing, and no accessory muscle usage. Abdominal: soft, nontender to palpation, no guarding, no appreciable organomegaly Ext: ROM intact. No gross muscle atrophy, no edema, no contractures Neuro: Speech clear, face symmetrical and CN II-XII grossly intact with no noted focal neuro deficits Psych: Alert and oriented to person, place, time, and situation. Appropriate and pleasant affect. A total of 31 minutes of time were spent preparing this complex discharge summary. Pt was discharged on 11/23/22 at 12:58 PM. Patient was seen independently by Nurse Practitioner. This document was prepared using [employer] dictation software. Please allow for errors in script reader while rare they do occur. I reviewed the documentation as provided by the MARISABEL above, who is the original author of this note. I agree with the documented assessment and plan, with the following changes: none Patient Condition at Discharge: Stable Plan - Discharge Summary Discharge Rx Participant: Yes New Discharge Prescriptions: New Cefdinir [Omnicef] 300 mg PO Q12HR 1 Days #3 capsule Continue Losartan Potassium [Cozaar] 25 mg PO DAILY dilTIAZem HCL [Cardizem CD] 240 mg PO DAILY Cholecalciferol (Vitamin D3) [Vitamin D3] 50 mcg PO DAILY Omeprazole [PriLOSEC] 20 mg PO DAILY Atorvastatin [Lipitor] 40 mg PO DAILY Butalb/APAP/Caff 50-325-40Mg [Fioricet 50-325-40] 1 tab PO DAILY PRN PRN Reason: Headache HYDROcodone/APAP 5-325MG [[place] 5-325] 1 tab PO TID PRN PRN Reason: Pain Rizatriptan Benzoate [Rizatriptan] 10 mg PO BID PRN MDD 20 mg PRN Reason: Migraine Headache Ezetimibe [Zetia] 10 mg PO DAILY Cyanocobalamin (Vitamin B-12) [Vitamin B-12] 1,000 mcg PO DAILY Discontinued methocarbamoL [Robaxin] 500 mg PO TID PRN PRN Reason: Muscle Spasm Discharge Medication List Cholecalciferol (Vitamin D3) [Vitamin D3] 50 mcg PO DAILY 03/10/20 [History] Losartan Potassium [Cozaar] 25 mg PO DAILY 03/10/20 [History] Omeprazole [PriLOSEC] 20 mg PO DAILY 03/10/20 [History] dilTIAZem HCL [Cardizem CD] 240 mg PO DAILY 03/10/20 [History] Atorvastatin [Lipitor] 40 mg PO DAILY 11/22/22 [History] Butalb/APAP/Caff 50-325-40Mg [Fioricet 50-325-40] 1 tab PO DAILY PRN 11/22/22 [History] Cyanocobalamin (Vitamin B-12) [Vitamin B-12] 1,000 mcg PO DAILY 11/22/22 [History] Ezetimibe [Zetia] 10 mg PO DAILY 11/22/22 [History] HYDROcodone/APAP 5-325MG [[place] 5-325] 1 tab PO TID PRN 11/22/22 [History] Rizatriptan Benzoate [Rizatriptan] 10 mg PO BID PRN MDD 20 mg 11/22/22 [History] Cefdinir [Omnicef] 300 mg PO Q12HR 1 Days #3 capsule 11/23/22 [Rx] Follow up Appointment(s)/Referral(s): Shaheen Soria MD [Medical Doctor] - 2 Weeks (Gen. surgeon to follow up and further discuss options regarding treatment of large hiatal hernia.) Omar Clarke MD [STAFF PHYSICIAN] - As Needed (Contact information for tax audit manager to establish care as you requested) Jermain Christopher MD [REFERRING] - 1 Week (Contact information for recommended Primary Care Physician to establish care) Bebe Francisco DO [Doctor of Osteopathic Medicine] - As Needed (Contact information for ict business development manager as you requested) Moe Dubose DO [Doctor of Osteopathic Medicine] - As Needed (Contact information for Orthopedic/orthospine physician you requested) Patient Instructions/Handouts: Cefdinir (By mouth), Vertigo (DC), Fall Prevention (DC) Activity/Diet/Wound Care/Special Instructions: Activity: As tolerated. Walk with walker at all times. Diet: Heart healthy and carb consistent diet. Avoid salts, or foods with hidden salts such as canned or boxed foods and frozen dinners. Extra salt makes your heart work harder and traps the fluid in your body for longer. Special Instructions: Take all of your medications as directed and remember to keep all of your doctor's appointments and follow-up as needed. Caution with use of Robaxin, Fioricet, and [place]. These medications have been known to cause dizziness/lightheadedness. Again, as we discussed if you have any further episodes of dizziness/lightheadedness or begin to experience any new onset changes in vision, chest pain, palpitations, shortness of breath, or experiencing any focal numbness/tingling/weakness in your extremities your needs to return to the hospital immediately for evaluation. Good luck on your home search!! Thank you for allowing us to participate in your care, it was truly a pleasure having you for our patient!!! Patient prefers to make own follow-up appts. Recomendations provided. Discharge Disposition: HOME SELF-CARE
== END 2022-11-23 15:09 | disposition home or self-care (01) ==
LOC: EC 03:16 → 5NMEDONC 06:17
PROVIDERS: ADMIT Internal Medicine; ATTEND Internal Medicine
DX: N39.0 Urinary tract infection, site not specified (principal); E86.0 Dehydration; R42 Dizziness and giddiness; E11.9 Type 2 diabetes mellitus without complications; I10 Essential (primary) hypertension; E78.5 Hyperlipidemia, unspecified; D50.9 Iron deficiency anemia, unspecified; Z20.822 Contact with and (suspected) exposure to COVID-19; I47.1 Supraventricular tachycardia; N81.4 Uterovaginal prolapse, unspecified; Z98.49 Cataract extraction status, unspecified eye; Z98.890 Other specified postprocedural states; Z80.0 Family history of malignant neoplasm of digestive organs; E66.9 Obesity, unspecified; Z68.41 Body mass index [BMI] 40.0-44.9, adult; K44.9 Diaphragmatic hernia without obstruction or gangrene; E87.8 Other disorders of electrolyte and fluid balance, not elsewhere classified; R79.89 Other specified abnormal findings of blood chemistry; Z79.899 Other long term (current) drug therapy; Z88.5 Allergy status to narcotic agent; Z91.048 Other nonmedicinal substance allergy status
CPT/HCPCS: 96361 ×3; 96365; 96372 ×2; 96375; 99285; 36415; 93005; 97162; 97166; 83880; 80053; 83690; 83735; 84484; 85025; 85610; 85730; 81001; 87636; 71046; G0378 ×2; J1650 ×2; J0696 ×2

== ENCOUNTER 2022-12-03 12:39 | Inpatient (IN) | payer MEDICARE ==
[2022-12-03] MEDS ORDERED: NITROGLYCERIN OINT 1 INCH/GM PACKET TOPICAL STA (13:07)
[2022-12-03] MEDS ORDERED: ASPIRIN 81 MG PO STA (13:07)
--- NOTE | 2022-12-03 13:11 | ED ---
General Adult HPI - General Chief complaint: Chest Pain Stated complaint: chest pain Time Seen by Provider: 12/03/22 12:55 Source: patient, family, RN notes reviewed Mode of arrival: wheelchair Limitations: no limitations - History of Present Illness Initial comments: Patient is a pleasant 77-year-old female presenting to the emergency Department with chest discomfort. Onset of symptoms was around an hour ago. Patient states discomfort feels like an ache. Discomfort was severe however now is improved and rated only 3/10. No radiation. Patient does have associated dyspnea. No nausea. No diaphoresis. Patient does have history of similar symp toms previously however unclear why. No history of previous heart attack. - Related Data Home Medications Medication Instructions Recorded Confirmed Cholecalciferol (Vitamin D3) 50 mcg PO DAILY 03/10/20 12/03/22 [Vitamin D3] Losartan Potassium [Cozaar] 25 mg PO DAILY 03/10/20 12/03/22 Omeprazole [PriLOSEC] 20 mg PO DAILY 03/10/20 12/03/22 dilTIAZem HCL [Cardizem CD] 240 mg PO DAILY 03/10/20 12/03/22 Atorvastatin [Lipitor] 40 mg PO DAILY 11/22/22 12/03/22 Butalb/APAP/Caff 50-325-40Mg 1 tab PO DAILY PRN 11/22/22 12/03/22 [Fioricet 50-325-40] Cyanocobalamin (Vitamin B-12) 1,000 mcg PO DAILY 11/22/22 12/03/22 [Vitamin B-12] Ezetimibe [Zetia] 10 mg PO DAILY 11/22/22 12/03/22 HYDROcodone/APAP 5-325MG [[place] 1 tab PO TID PRN 11/22/22 12/03/22 5-325] Allergies Allergy/AdvReac Type Severity Reaction Status Date / Time meperidine [From Demerol] Allergy Unknown Verified 12/03/22 13:37 amoxicillin [From Augmentin] AdvReac Flu like Verified 12/03/22 13:37 symptoms, Nausea, dizziness clavulanic acid AdvReac Flu like Verified 12/03/22 13:37 [From Augmentin] symptoms, Nausea, dizziness iron AdvReac Vomiting Verified 12/03/22 13:37 Review of Systems ROS Statement: Those systems with pertinent positive or pertinent negative responses have been documented in the HPI. ROS Other: All systems not noted in ROS Statement are negative. Constitutional: Denies: fever Eyes: Denies: eye pain ENT: Denies: ear pain Respiratory: Reports: as per HPI, dyspnea. Denies: cough Cardiovascular: Reports: as per HPI, chest pain Endocrine: Denies: fatigue Gastrointestinal: Denies: abdominal pain Genitourinary: Denies: dysuria Musculoskeletal: Denies: back pain Skin: Denies: rash Neurological: Denies: weakness Past Medical History Past Medical History: Diabetes Mellitus, Hyperlipidemia, Hypertension, Supraventricular Tachycardia (SVT) Additional Past Medical History / Comment(s): Iron deficiency anemia, SVT, vasovagal, prolapsed uterus History of Any Multi-Drug Resistant Organisms: None Reported Past Surgical History: Back Surgery Additional Past Surgical History / Comment(s): ankle surgery, cataract surgery Past Anesthesia/Blood Transfusion Reactions: No Reported Reaction Past Psychological History: No Psychological Hx Reported Past Alcohol Use History: None Reported Past Drug Use History: None Reported - Past Family History Mother Additional Family Medical History / Comment(s): heart problems Sister(s) Family Medical History: Cancer Additional Family Medical History / Comment(s): of pancreatic cancer General Exam Limitations: no limitations General appearance: alert, in no apparent distress Head exam: Present: normocephalic Eye exam: Present: normal appearance Neck exam: Present: normal inspection Respiratory exam: Present: normal lung sounds bilaterally. Absent: chest wall tenderness Cardiovascular Exam: Present: regular rate, normal rhythm Expanded Peripheral pulses: 2+: Radial (R), Radial (L), Posterior Tibialis (R), Posterior Tibialis (L), Dorsalis Pedis (R), Dorsalis Pedis (L) GI/Abdominal exam: Present: soft. Absent: tenderness Extremities exam: Present: normal inspection. Absent: pedal edema, calf tenderness Neurological exam: Present: alert Psychiatric exam: Present: normal affect, normal mood Skin exam: Present: normal color Course Vital Signs 12/03/22 12/03/22 12/03/22 12:43 13:36 14:30 Temperature 97.6 F Pulse Rate 79 70 68 Respiratory 16 18 18 Rate Blood Pressure 166/104 137/81 144/95 O2 Sat by Pulse 98 97 96 Oximetry EKG Findings - EKG Results: EKG: interpreted by ERMD (Left axis. Poor R-wave progression. Septal Q waves), sinus rhythm (First degree AV block [place] 245), normal ST/T Medical Decision Making - Medical Decision Making Was pt. sent in by a medical professional or institution ([facility], [facility], urgent care, hospital, or group home...) When possible be specific @ -No Did you speak to anyone other than the patient for history (EMS, parent, family, police, friend...)? What history was obtained from this source @ -No Did you review nursing and triage notes (agree or disagree)? Why? @ -I reviewed and agree with nursing and triage notes Were old charts reviewed (outside hosp., previous admission, EMS record, old EKG, old radiological studies, urgent care reports/EKG's, group home records)? Report findings @ -No old charts were reviewed Differential Diagnosis (chest pain, altered mental status, abdominal pain women, abdominal pain men, vaginal bleeding, weakness, fever, dyspnea, syncope, headache, dizziness, GI bleed, back pain, seizure, CVA, palpatations, mental health)? @ -Differential Chest Pain: Stable Angina, Unstable Angina, STEMI, NSTEMI Aortic Dissection, Pneumothorax, Musculoskeletal, Esophageal Spasm GERD, Cholecystitis, Pancreatitis, Zoster, this is not meant to be an all-inclusive list. EKG interpreted by me (3pts min.). @ -As above X-rays interpreted by me (1pt min.). @ -Chest x-ray shows no acute process CT interpreted by me (1pt min.). @ -None done U/S interpreted by me (1pt. min.). @ -None done What testing was considered but not performed or refused? (CT, X-rays, U/S, labs)? Why? @ -None What meds were considered but not given or refused? Why? @ -None Did you discuss the management of the patient with other professionals (professionals i.e. [facility], [facility], lab, RT, psych nurse, geriatric social work professor, bag machine helper, teacher, deck officer, spring encaser)? Give summary @ -Case was discussed with Dr. Grewal, who will admit covering hospital call. Was smoking cessation discussed for >3mins.? @ -No Was critical care preformed (if so, how long)? @ -No Were there social determinants of health that impacted care today? How? (Homelessness, low income, unemployed, alcoholism, drug addiction, transportation, low edu. Level, literacy, decrease access to med. care, custodial, rehab)? @ -No Was there de-escalation of care discussed even if they declined (Discuss DNR or withdrawal of care, Hospice)? DNR status @ -No What co-morbidities impacted this encounter? (DM, HTN, Smoking, COPD, CAD, Cance r, CVA, ARF, Chemo, Hep., AIDS, mental health diagnosis, sleep apnea, morbid obesity)? @ -None Was patient admitted / discharged? Hospital course, mention meds given and route, prescriptions, significant lab abnormalities, going to OR and other pertinent info. @ -Patient reevaluated and resting comfortably in bed. Patient updated on results and plan. Computed tomography scan will be ordered secondary to mild elevation with d-dimer. Patient will be admitted for cardiac monitoring and repeat testing and evaluation Undiagnosed new problem with uncertain prognosis? @ -No Drug Therapy requiring intensive monitoring for toxicity (Heparin, Nitro, Insulin, Cardizem)? @ -No Were any procedures done? @ -No Diagnosis/symptom? @ -Chest pain Acute, or Chronic, or Acute on Chronic? @ -Acute Uncomplicated (without systemic symptoms) or Complicated (systemic symptoms)? @ -default Side effects of treatment? @ -No Exacerbation, Progression, or Severe Exacerbation? @ -No Poses a threat to life or bodily function? How? (Chest pain, [place], [place], pneumonia, PE, COPD, DKA, ARF, appy, cholecystitis, CVA, Diverticulitis, Homicidal, Suicidal, threat to staff... and all critical care pts) @ -No - Lab Data Result diagrams: 12/03/22 13:09 12/03/22 13:09 Lab Results 12/03/22 12/03/22 12/03/22 Range/Units 13:09 13:09 13:09 WBC 6.2 (3.8-10.6) k/uL RBC 4.64 (3.80-5.40) m/uL Hgb 13.2 (11.4-16.0) gm/dL Hct 40.4 (34.0-46.0) % MCV 87.1 (80.0-100.0) fL MCH 28.4 (25.0-35.0) pg MCHC 32.6 (31.0-37.0) g/dL RDW 15.0 (11.5-15.5) % Plt Count 255 (150-450) k/uL MPV 9.7 Neutrophils % 52 % Lymphocytes % 30 % Monocytes % 11 % Eosinophils % 4 % Basophils % 1 % Neutrophils # 3.2 (1.3-7.7) k/uL Lymphocytes # 1.9 (1.0-4.8) k/uL Monocytes # 0.7 (0-1.0) k/uL Eosinophils # 0.2 (0-0.7) k/uL Basophils # 0.0 (0-0.2) k/uL PT 9.8 (9.0-12.0) sec INR 0.9 (<1.2) APTT 23.5 (22.0-30.0) sec D-Dimer 0.98 H (<0.60) mg/L FEU Sodium 139 (137-145) mmol/L Potassium 4.2 (3.5-5.1) mmol/L Chloride 107 (98-107) mmol/L Carbon Dioxide 23 (22-30) mmol/L Anion Gap 9 mmol/L BUN 14 (7-17) mg/dL Creatinine 0.53 (0.52-1.04) mg/dL Est GFR (CKD-EPI)AfAm >90 (>60 ml/min/1.73 sqM) Est GFR (CKD-EPI)NonAf >90 (>60 ml/min/1.73 sqM) Glucose 102 H (74-99) mg/dL Calcium 9.3 (8.4-10.2) mg/dL Magnesium 1.8 (1.6-2.3) mg/dL Total Bilirubin 0.7 (0.2-1.3) mg/dL AST 38 H (14-36) U/L ALT 25 (4-34) U/L Alkaline Phosphatase 123 (38-126) U/L Troponin I (0.000-0.034) ng/mL NT-Pro-B Natriuret Pep pg/mL Total Protein 7.4 (6.3-8.2) g/dL Albumin 4.5 (3.5-5.0) g/dL Amylase 54 (30-110) U/L Lipase 53 (23-300) U/L 12/03/22 12/03/22 Range/Units 13:09 13:11 WBC (3.8-10.6) k/uL RBC (3.80-5.40) m/uL Hgb (11.4-16.0) gm/dL Hct (34.0-46.0) % MCV (80.0-100.0) fL MCH (25.0-35.0) pg MCHC (31.0-37.0) g/dL RDW (11.5-15.5) % Plt Count (150-450) k/uL MPV Neutrophils % % Lymphocytes % % Monocytes % % Eosinophils % % Basophils % % Neutrophils # (1.3-7.7) k/uL Lymphocytes # (1.0-4.8) k/uL Monocytes # (0-1.0) k/uL Eosinophils # (0-0.7) k/uL Basophils # (0-0.2) k/uL PT (9.0-12.0) sec INR (<1.2) APTT (22.0-30.0) sec D-Dimer (<0.60) mg/L FEU Sodium (137-145) mmol/L Potassium (3.5-5.1) mmol/L Chloride (98-107) mmol/L Carbon Dioxide (22-30) mmol/L Anion Gap mmol/L BUN (7-17) mg/dL Creatinine (0.52-1.04) mg/dL Est GFR (CKD-EPI)AfAm (>60 ml/min/1.73 sqM) Est GFR (CKD-EPI)NonAf (>60 ml/min/1.73 sqM) Glucose (74-99) mg/dL Calcium (8.4-10.2) mg/dL Magnesium (1.6-2.3) mg/dL Total Bilirubin (0.2-1.3) mg/dL AST (14-36) U/L ALT (4-34) U/L Alkaline Phosphatase (38-126) U/L Troponin I <0.012 (0.000-0.034) ng/mL NT-Pro-B Natriuret Pep 36 pg/mL Total Protein (6.3-8.2) g/dL Albumin (3.5-5.0) g/dL Amylase (30-110) U/L Lipase (23-300) U/L Disposition Clinical Impression: Chest pain Disposition: ADMITTED IP TO THIS HOSP Is patient prescribed a controlled substance at d/c from ED?: No Referrals: None,Stated [Primary Care Provider] - 1-2 days Time of Disposition: 15:07
--- NOTE | 2022-12-03 13:28 | XR ---
EXAMINATION TYPE: XR chest 2V DATE OF EXAM: 12/03/2022 COMPARISON: Chest x-ray 11 days ago HISTORY: Chest pain. TECHNIQUE: Frontal and lateral views of the chest are obtained. FINDINGS: There are chronic parenchymal changes greatest in the lower lungs redemonstrated. No suspi cious new focal airspace opacity, pleural effusion, or pneumothorax seen bilaterally. The cardiac batsheva houette size is stable and Mildly enlarged. Retrocardiac opacity consistent with large hiatal hernia or intrathoracic stomach is redemonstrated. The osseous structures are intact. IMPRESSION: Cardiomegaly and chronic parenchymal changes without new acute pulmonary process.
[2022-12-03 13:40] LABS: Basophils % (A) 1 %; Eosinophils # (A) 0.2 k/uL (0-0.7); Eosinophils % (A) 4 %; HCT 40.4 % (34.0-46.0); HGB 13.2 gm/dL (11.4-16.0); Lymphocytes # (A) 1.9 k/uL (1.0-4.8); Lymphocytes % (A) 30 %; MCH 28.4 pg (25.0-35.0); MCHC 32.6 g/dL (31.0-37.0); MCV 87.1 fL (80.0-100.0); Mean Platelet Volume 9.7; Monocytes # (A) 0.7 k/uL (0-1.0); Monocytes % (A) 11 %; Neutrophils # (A) 3.2 k/uL (1.3-7.7); Neutrophils % (A) 52 %; Platelet Count 255 k/uL (150-450); RBC 4.64 m/uL (3.80-5.40); WBC 6.2 k/uL (3.8-10.6)
[2022-12-03 13:51] LABS: INR 0.9 (<1.2); Prothrombin Time 9.8 sec (9.0-12.0)
[2022-12-03 13:52] LABS: Partial Thromboplastin Time 23.5 sec (22.0-30.0)
[2022-12-03 14:03] LABS: ALT 25 U/L (4-34); AST 38 U/L (14-36); African American GFR (CKD) >90 (>60 ml/min/1.73 sqM); Albumin 4.5 g/dL (3.5-5.0); Alkaline Phosphatase 123 U/L (38-126); Amylase 54 U/L (30-110); Anion Gap 9 mmol/L; Blood Urea Nitrogen 14 mg/dL (7-17); Calcium 9.3 mg/dL (8.4-10.2); Carbon Dioxide 23 mmol/L (22-30); Chloride 107 mmol/L (98-107); Glucose 102 mg/dL (74-99); Lipase 53 U/L (23-300); Magnesium 1.8 mg/dL (1.6-2.3); Non-African American GFR(CKD) >90 (>60 ml/min/1.73 sqM); Potassium 4.2 mmol/L (3.5-5.1); Sodium 139 mmol/L (137-145); Total Bilirubin 0.7 mg/dL (0.2-1.3); Total Protein 7.4 g/dL (6.3-8.2)
[2022-12-03] MEDS ORDERED: NALOXONE 0.4 MG/ML 1 ML VIAL IV PRN (15:07)
[2022-12-03] MEDS ORDERED: ASPIRIN 325 MG TAB PO STA (15:08)
[2022-12-03] MEDS: NITROGLYCERIN OINT 1 INCH/GM PACKET TOPICAL SCH ×2 (15:27→23:02)
[2022-12-03] MEDS ORDERED: HYDROcodone/APAP 5-325MG 1 EACH TAB PO PRN (16:13)
--- NOTE | 2022-12-03 16:13 | CT ---
EXAMINATION TYPE: CT angio chest CT DLP: 537.5 mGycm, Automated exposure control for dose reduction was used. DATE OF EXAM: 12/03/2022 3:57 PM COMPARISON: CTA chest 03/10/2020, chest radiograph 12/03/2022. CLINICAL INDICATION:Female, 77 years old with history of Chest pain and dyspnea; Chest pain, dyspnea. TECHNIQUE/CONTRAST: CTA scan of the thorax is performed with IV Contrast, patient injected with 100cc mL of Isovue 370, p ulmonary embolism protocol. MIP images are created and reviewed. FINDINGS: Pulmonary Artery: There is no evidence for a filling defect within the pulmonary vasculature to sugge st acute pulmonary embolism. The pulmonary artery is of normal size. Lungs/Pleura: Patchy subpleural interstitial opacities throughout the lungs which is improved from pr ior examination in 2019. No pneumothorax or pleural effusion. No suspicious pulmonary nodule or mass. Airway: Large airways are patent. Heart: Mild cardiomegaly. No pericardial effusion. Vasculature: No evidence of aortic aneurysm. Atherosclerotic calcification of the aorta and its branc hes. Mediastinum: Stable mildly enlarged subcarinal lymph node measuring 1.0 cm short axis. Musculoskeletal: No acute osseous abnormalities . Postsurgical changes of the lower thoracic spine ag ain demonstrated. Moderate multilevel degenerative disease of the visualized recommended for spine. Soft Tissues: Unremarkable. Lower neck: No significant findings. Upper Abdomen: Large hiatal hernia redemonstrated.. Hepatic and bilateral renal cysts fatty infiltrat ion of the pancreas. Post cholecystectomy changes redemonstrated. IMPRESSION: 1. No evidence of pulmonary embolism. 2. Patchy subpleural scattered interstitial opacities throughout the lungs which is improved from michael or examination 2019. This could represent an atypical viral pneumonia. 3. Stable mildly enlarged subcarinal lymph node. 4. Large hiatal hernia redemonstrated.
[2022-12-03] MEDS: BUTALB/APAP/CAFF 50-325-40MG TAB PO PRN (18:12)
[2022-12-03] MEDS ORDERED: ONDANSETRON 4 MG/2 ML VIAL IVP PRN (21:04)
[2022-12-03] MEDS ORDERED: PANTOPRAZOLE 40 MG/10 ML VIAL IVP SCH (21:15)
--- NOTE | 2022-12-03 22:07 | HP ---
HISTORY AND PHYSICAL CHIEF COMPLAINT: Chest pain. HISTORY OF PRESENT ILLNESS: This is a 77-year-old woman with a past medical history of multiple medical problems including diabetes, hypertension, hyperlipidemia, was complaining of chest pain which was mostly on the left chest under the breast and the discomfort does appear as ache without much radiation. Because of concern, the patient came to [facility] and was admitted for further evaluation and treatment. There is no history of any fever, rigors, or chills. No history of headache, loss of consciousness, or seizure. No associated cough. The patient's troponins were found to be elevated up to 0.[address] angio of chest is being ordered. PAST MEDICAL HISTORY: Reviewed, include diabetes mellitus, hypertension, hyperlipidemia. Rest of the history and rest of the chart is also reviewed. HOME MEDICATIONS: Reviewed include Cardizem CD. Dose and rest of medications noted. ALLERGIES: Meperidine. The rest of the allergies are noted. SOCIAL HISTORY: No history of smoking or alcohol intake. FAMILY HISTORY: History of heart problems. REVIEW OF SYSTEMS: A 14-point review is negative except as mentioned earlier. PHYSICAL EXAMINATION: VITAL SIGNS: Pulse 68, blood pressure 145/95, respirations 18. HEENT: Conjunctivae normal. NECK: No jugular venous distention. CARDIOVASCULAR: S1 and S2 muffled. RESPIRATORY: Breath sounds diminished at the bases. No rhonchi. No crackles. ABDOMEN: Soft, nontender. Some local tenderness also present. LABORATORY DATA: Labs are reviewed. ASSESSMENT: 1. Chest pain, possible unstable angina. 2. Diabetes mellitus, type 2. 3. Hypertension. 4. Hyperlipidemia. 5. History of supraventricular tachycardia. RECOMMENDATIONS: This is a 77-year-old woman who presented with multiple complex medical issues, had multiple comorbidities. At this time, I recommend continue the current medications. Monitor closely. Rule out myocardial infarction. Cardiology consultation. Possible stress test. Resume the home medications once they are confirmed. We will follow the patient closely. See orders for further details. Prognosis guarded. Further recommendations to follow. MMODL / IJN: [id number] / MTDD
[2022-12-04] MEDS: PANTOPRAZOLE 40 MG TABLET PO SCH (06:24)
[2022-12-04] MEDS ORDERED: CAFFEINE CITRATE 60 MG/3 ML VIAL IV PRN (07:18)
[2022-12-04] MEDS ORDERED: REGADENOSON 0.4 MG/5 ML SYRINGE IV PRN (07:18)
[2022-12-04] MEDS ORDERED: AMINOPHYLLINE 500 MG/20 ML VIAL IV PRN (07:18)
--- NOTE | 2022-12-04 07:21 | P.CRDCN ---
History of Present Illness Consult date: 12/04/22 Chief complaint: Chest pain History of present illness: The patient is a pleasant 77-year-old female patient with a past medical history significant for diabetes and hypertension and dyslipidemia and history of SVT according to her who just moved from [place] presented to the hospital complaining of chest discomfort. She was in her usual state of health until yesterday when she was getting dressed to get out of home and started experiencing discomfort in the middle of the chest as a sharp kind of discomfort was no radiation to the arms or neck or shoulders andassociates symptoms of shortness of breath or sweating or dizziness or lightheadedness or any feeling of heart racing or fluttering or any presyncope or syncope. She decided to come to the hospital for further investigation. She underwent a workup including EKG showing sinus rhythm was Q wave anteriorly. She also underwent cardiac enzymes came in to be unremarkable with a chest x-ray showed chronic changes with no acute abnormalities. The patient has been chest pain-free since she came into the hospital. No history of coronary artery disease but she does have diabetes and hypertension and dyslipidemia. No history of smoking. The physical examination is remarkable for slightly elevated blood pressure but she does not have hypertension crisis. She has a regular rhythm with a clear breathing sounds bilaterally and no carotid bruit or lower extremity edema noted. Assessment Chest discomfort, atypical, has resolved Multiple risk factors for CAD including diabetes and hypertension and dyslipidemia Abnormal EKG showing Q wave anteriorly concerning for prior myocardial infarction. Plan Acute coronary event was ruled out CTA came in to be unremarkable for pulmonary embolism Rule out severe CAD by obtaining a stress test Follow-up with the patient Past Medical History Past Medical History: Diabetes Mellitus, Hyperlipidemia, Hypertension, Supraventricular Tachycardia (SVT) Additional Past Medical History / Comment(s): Iron deficiency anemia, SVT, vasovagal, prolapsed uterus History of Any Multi-Drug Resistant Organisms: None Reported Past Surgical History: Back Surgery Additional Past Surgical History / Comment(s): ankle surgery, cataract surgery Past Anesthesia/Blood Transfusion Reactions: No Reported Reaction Past Psychological History: No Psychological Hx Reported Smoking Status: Never smoker Past Alcohol Use History: None Reported Past Drug Use History: None Reported - Past Family History Mother Additional Family Medical History / Comment(s): heart problems Sister(s) Family Medical History: Cancer Additional Family Medical History / Comment(s): of pancreatic cancer Medications and Allergies Home Medications Medication Instructions Recorded Confirmed Type Cholecalciferol (Vitamin D3) 50 mcg PO DAILY 03/10/20 12/03/22 History [Vitamin D3] Losartan Potassium [Cozaar] 25 mg PO DAILY 03/10/20 12/03/22 History Omeprazole [PriLOSEC] 20 mg PO DAILY 03/10/20 12/03/22 History dilTIAZem HCL [Cardizem CD] 240 mg PO DAILY 03/10/20 12/03/22 History Atorvastatin [Lipitor] 40 mg PO DAILY 11/22/22 12/03/22 History Butalb/APAP/Caff 50-325-40Mg 1 tab PO DAILY PRN 11/22/22 12/03/22 History [Fioricet 50-325-40] Cyanocobalamin (Vitamin B-12) 1,000 mcg PO DAILY 11/22/22 12/03/22 History [Vitamin B-12] Ezetimibe [Zetia] 10 mg PO DAILY 11/22/22 12/03/22 History HYDROcodone/APAP 5-325MG [Minier 1 tab PO TID PRN 11/22/22 12/03/22 History 5-325] Allergies Allergy/AdvReac Type Severity Reaction Status Date / Time meperidine [From Demerol] Allergy Unknown Verified 12/03/22 13:37 amoxicillin [From Augmentin] AdvReac Flu like Verified 12/03/22 13:37 symptoms, Nausea, dizziness clavulanic acid AdvReac Flu like Verified 12/03/22 13:37 [From Augmentin] symptoms, Nausea, dizziness iron AdvReac Vomiting Verified 12/03/22 13:37 Physical Exam Vitals: Vital Signs Temp Pulse Pulse Resp BP BP Pulse Ox 12/04/22 02:19 97.8 F 73 17 115/73 96 12/03/22 23:00 98.1 F 68 17 124/66 95 12/03/22 18:24 93 181/82 96 12/03/22 16:33 79 18 149/95 96 12/03/22 14:30 68 18 144/95 96 12/03/22 13:36 70 18 137/81 97 12/03/22 12:43 97.6 F 79 16 166/104 98 Intake and Output 12/03/22 12/04/22 12/04/22 22:59 06:59 14:59 Other: Voiding Method Toilet # Voids 2 Weight 100.698 kg Results 12/03/22 13:09 12/03/22 13:09 Cardiac Enzymes 12/03/22 12/03/22 12/03/22 Range/Units 13:09 13:09 18:33 AST 38 H (14-36) U/L Troponin I <0.012 <0.012 (0.000-0.034) ng/mL 12/04/22 Range/Units 04:36 AST (14-36) U/L Troponin I <0.012 (0.000-0.034) ng/mL Coagulation 12/03/22 Range/Units 13:09 PT 9.8 (9.0-12.0) sec APTT 23.5 (22.0-30.0) sec CBC 12/03/22 Range/Units 13:09 WBC 6.2 (3.8-10.6) k/uL RBC 4.64 (3.80-5.40) m/uL Hgb 13.2 (11.4-16.0) gm/dL Hct 40.4 (34.0-46.0) % Plt Count 255 (150-450) k/uL Comprehensive Metabolic Panel 12/03/22 Range/Units 13:09 Sodium 139 (137-145) mmol/L Potassium 4.2 (3.5-5.1) mmol/L Chloride 107 (98-107) mmol/L Carbon Dioxide 23 (22-30) mmol/L BUN 14 (7-17) mg/dL Creatinine 0.53 (0.52-1.04) mg/dL Glucose 102 H (74-99) mg/dL Calcium 9.3 (8.4-10.2) mg/dL AST 38 H (14-36) U/L ALT 25 (4-34) U/L Alkaline Phosphatase 123 (38-126) U/L Total Protein 7.4 (6.3-8.2) g/dL Albumin 4.5 (3.5-5.0) g/dL Current Medications Generic Name Dose Route Start Last Admin Trade Name Freq PRN Reason Stop Dose Admin Acetaminophen/Butalbital/Caffeine 1 each 12/03/22 16:13 12/03/22 18:12 Butalb/Apap/Caff 50-325-40mg Tab PO 1 each DAILY PRN Administration Headache Hydrocodone Bitart/Acetaminophen 1 each 12/03/22 16:13 12/03/22 20:00 Hydrocodone/Apap 5-325mg 1 Each Tab PO 1 each TID PRN Administration Pain Atorvastatin Calcium 40 mg 12/04/22 09:00 Atorvastatin 40 Mg Tab PO DAILY [facility] Cholecalciferol 50 mcg 12/04/22 09:00 Cholecalciferol 25 Mcg (1000 Iu) Tablet PO DAILY [facility] Cyanocobalamin 1,000 mcg 12/04/22 09:00 Cyanocobalamin 500 Mcg Tab PO DAILY [facility] Diltiazem HCl 240 mg 12/04/22 09:00 Diltiazem Cd 240 Mg Cap.Er.24h PO DAILY [facility] Ezetimibe 10 mg 12/04/22 09:00 Ezetimibe 10 Mg Tab PO DAILY [facility] Losartan Potassium 25 mg 12/04/22 09:00 Losartan 25 Mg Tab PO DAILY [facility] Naloxone HCl 0.2 mg 12/03/22 15:07 Naloxone 0.4 Mg/Ml 1 Ml Vial IV Q2M PRN Opioid Reversal Nitroglycerin 0.5 inch 12/03/22 16:00 12/03/22 23:02 Nitroglycerin Oint 1 Inch/Gm Packet TOPICAL Not Given Q8HR [facility] Ondansetron HCl 4 mg 12/03/22 21:04 12/03/22 21:57 Ondansetron 4 Mg/2 Ml Vial IVP 4 mg Q6HR PRN Administration Nausea And Vomiting Pantoprazole Sodium 40 mg 12/04/22 07:30 12/04/22 06:24 Pantoprazole 40 Mg Tablet PO 40 mg DAILY@0730 [facility] Administration Intake and Output 12/03/22 12/04/22 12/04/22 22:59 06:59 14:59 Other: Voiding Method Toilet # Voids 2 Weight 100.698 kg 12/03/22 13:09 12/03/22 13:09
[2022-12-04] MEDS: NITROGLYCERIN OINT 1 INCH/GM PACKET TOPICAL SCH ×3 (07:29→20:06)
[2022-12-04] MEDS: CYANOCOBALAMIN 500 MCG TAB PO SCH (08:13)
[2022-12-04] MEDS: ATORVASTATIN 40 MG TAB PO SCH (08:13)
[2022-12-04] MEDS: EZETIMIBE 10 MG TAB PO SCH (08:13)
[2022-12-04] MEDS: LOSARTAN 25 MG TAB PO SCH (08:14)
[2022-12-04] MEDS: CHOLECALCIFEROL 25 MCG (1000 IU) TABLET PO SCH (08:14)
[2022-12-04] MEDS: BUTALB/APAP/CAFF 50-325-40MG TAB PO PRN (08:16)
[2022-12-04] MEDS: DILTIAZEM CD 240 MG CAP.ER.24H PO SCH (11:42)
--- NOTE | 2022-12-04 11:42 | NM ---
EXAMINATION TYPE: NM stress lexiscan cardiolite DATE OF EXAM: 12/04/2022 COMPARISON: NONE HISTORY: Chest pain TECHNIQUE: After the intravenous administration of 10.35 mCi Tc 99m Sestamibi - Cardiolite resting S PECT images acquired 45 minutes post injection. The patient received 0.4mg Lexiscan, 25.7 mCi Tc 99m Sestamibi - Stress images obtained [address] injection FINDINGS: Review of stress and rest SPECT images demonstrates predominantly cystic defect involving the lateral wall myocardium. Small area of stress-induced reversible ischemia not excluded. Gated analysis show s normal wall motion with an estimated left ventricular ejection fraction of 53 %. IMPRESSION: 1. There is a predominantly fixed defect involving the lateral wall of the myocardium. Small area of stress-induced reversible ischemia is not excluded correlate clinically.
--- NOTE | 2022-12-04 11:57 | CA ---
Transthoracic Echo Report Name: Corrie Copeland Age: 77 Gender: F : 1945 Exam Date: 12/04/2022 08:46 Exam Location: [facility] Ht (in): 61 Wt (lb): 220 Ordering Physician: Gila Grewal MD Attending/Referring Phys: Thread Tool Grinder Set Up Operator Procedure CPT: Indications: Chest Pain Cardiac Hx: HTN; CAD; Obesity; DM; High Cholesterol; Technical Quality: Fair Contrast 1: Total Dose (mL): Contrast 2: Total Dose (mL): MEASUREMENTS (Male / Female) Normal Values 2D ECHO LV Diastolic Diameter PLAX 4.2 cm 4.2 - 5.9 / 3.9 - 5.3 cm LV Systolic Diameter PLAX 3.1 cm IVS Diastolic Thickness 1.0 cm 0.6 - 1.0 / 0.6 - 0.9 cm LVPW Diastolic Thickness 1.0 cm 0.6 - 1.0 / 0.6 - 0.9 cm LV Relative Wall Thickness 0.5 RV Internal Dim ED PLAX 3.3 cm LVOT Diameter 2.1 cm LA Systolic Diameter LX 3.1 cm 3.0 - 4.0 / 2.7 - 3.8 cm LV Diastolic Volume MOD BP 72.5 cm??? 67 - 155 / 56 - 104 cm??? LV Systolic Volume MOD BP 28.3 cm??? 22 - 58 / 19 - 49 cm??? LV Ejection Fraction MOD BP 61.0 % >= 55 % LV Diastolic Volume MOD 4C 67.5 cm??? LV Systolic Volume MOD 4C 24.7 cm??? LV Ejection Fraction MOD 4C 63.4 % LV Diastolic Length 4C 6.9 cm LV Systolic Length 4C 5.5 cm LV Diastolic Volume MOD 2C 76.4 cm??? LV Systolic Volume MOD 2C 32.3 cm??? LV Ejection Fraction MOD 2C 57.7 % LV Diastolic Length 2C 7.1 cm LV Systolic Length 2C 5.4 cm Ascending Aorta Diameter 2.4 cm M-MODE Aortic Root Diameter MM 2.9 cm LA Systolic Diameter MM 3.5 cm LA Ao Ratio MM 1.2 MV E Point Septal Separation 1.0 cm AV Cusp Separation MM 1.6 cm DOPPLER AV Peak Velocity 112.8 cm/s AV Peak Gradient 5.1 mmHg AI Peak Velocity 468.7 cm/s AI Peak Gradient 87.9 mmHg AI Pressure Half Time 789.4 ms MV Peak Velocity 121.1 cm/s MV Peak Gradient 5.9 mmHg MV Mean Velocity 77.7 cm/s MV Mean Gradient 2.8 mmHg MV Velocity Time Integral 33.3 cm MR Peak Velocity 396.8 cm/s MR Peak Gradient 63.0 mmHg Mitral E Point Velocity 77.2 cm/s Mitral A Point Velocity 114.5 cm/s Mitral E to A Ratio 0.7 MV Deceleration Time 183.5 ms MV E' Velocity 4.5 cm/s Mitral E to MV E' Ratio 17.2 TR Peak Velocity 261.9 cm/s TR Peak Gradient 27.4 mmHg Right Ventricular Systolic Press 32.4 mmHg FINDINGS Left Ventricle Left ventricular ejection fraction is estimated at 55-60 %. Mild LVH ;grade 1 diastolic dysfunction. Normal basal systolic function. Right Ventricle Normal right ventricular size and function. RVSP- 32 mm Hg. Right Atrium Normal right atrial size. Left Atrium Normal left atrial size. Mitral Valve Mitral valve thickened. Iifj-vb-egigfqvc mitral stenosis. Bbar-gu-pkrnwomu mitral regurgitation. Aortic Valve Trileaflet aortic valve. Diffuse thickening (sclerosis) of the aortic valve cusps without reduced excursion. Amvf-ov-lrrmlvlr aortic regurgitation. Tricuspid Valve Mild tricuspid regurgitation. Pulmonic Valve Trace to mild pulmonic regurgitation. Pericardium Normal pericardium. No pericardial effusion. Aorta Normal size aortic root and proximal ascending aorta. CONCLUSIONS Normal LV systolic function. Mild LVH. Diastolic dysfunction stage I Mitral annular calcification with mild to moderate MR Aortic sclerosis with no stenosis with mild insufficiency Previewed by: Dr. Omar Clarke MD (Electronically Signed) Final Date: 04 December 2022 11:56
--- NOTE | 2022-12-04 12:41 | CA ---
Lexiscan Nuclear Stress Test Report Name: Corrie Copeland Exam Date: 12/04/2022 10:19 Exam Location: [facility] Ht (in): 61 Wt (lb): 220 BSA: 1.97 Ordering Phys: Omar Clarke MD Referring Phys: OMAR CLARKE,, Technologist: Michael Mcgovern Age: 77 Gender: F : 1945 Procedure CPT: Indications: Reflex order-Stress test ICD-10 Codes: Patient History: Medications: SEE CHART Meds past 24 hrs: Pretest Chest Pain: STRESS TEST Lexiscan Protocol Exercise Duration (min:sec): 02:[address] Depressions (mm): Angina Score: Cárdenas Score: Resting HR (bpm): 66 Peak HR (bpm): 99 Resting BP (mmHg): 140 / 71 Peak BP (mmHg): 147 / 71 MPHR: 142 Target HR: 121 % MPHR: 70 METS: 1.0 Total Dose: Peak Dose: Atropine: Double Product: 10924 BP Response: Stress Termination: PROTOCOL COMPLETE Stress Symptoms: No chest pain or symptoms Stress Summary: ECG ANALYSIS Resting ECG: Stress ECG: CONCLUSIONS Nonspecific EKG changes in response to Lexiscan Dr. Omar Clarke MD (Electronically Signed) Final Date: 04 December 2022 12:40
[2022-12-04] MEDS ORDERED: SODIUM CHLORIDE 0.9% 1,000 ML in EMPTY BAG 1 BAG IV ONE (18:34)
[2022-12-04] MEDS ORDERED: ALPRAZolam 0.5 MG TAB PO PRN (18:34)
[2022-12-04] MEDS ORDERED: ALPRAZolam 0.25 MG TAB PO PRN (18:34)
[2022-12-04] MEDS ORDERED: NITROGLYCERIN SL TABS 0.4 MG TAB SUBLINGUAL PRN (18:34)
--- NOTE | 2022-12-04 19:05 | P.PN ---
Subjective Progress Note Date: 12/04/22 This is a pleasant 77-year-old female who was recently admitted with chest pain and evaluated by cardiology underwent stress echo today and there was a small area of concern that could not exclude some reversible ischemia with cardiology planning on cardiac catheterization in the a.m. Patient is currently afebrile with no reports of nausea or vomiting noted. Patient is tolerating diet and will be nothing by mouth at midnight. Recommend telemetry monitoring and will follow-up with repeat labs Review of systems: Constitutional: No reports of fatigue, fever, or chills Cardiovascular: No reports of chest pain or palpitations Respiratory: No reports of shortness of breath or cough GI: reports of nausea, no reports of of vomiting, : No reports of dysuria or retention Neurovascular: no reports of generalized weakness All medications have been reviewed Active Medications Acetaminophen/Butalbital/Caffeine (Butalb/Apap/Caff 50-325-40mg Tab) 1 each PO DAILY PRN PRN Reason: Headache Last Admin: 12/04/22 08:16 Dose: 1 each Hydrocodone Bitart/Acetaminophen (Hydrocodone/Apap 5-325mg 1 Each Tab) 1 each PO TID PRN PRN Reason: Pain Last Admin: 12/03/22 20:00 Dose: 1 each Alprazolam (Alprazolam 0.25 Mg Tab) 0.25 mg PO Q6HR PRN PRN Reason: Mild Anxiety Alprazolam (Alprazolam 0.5 Mg Tab) 0.5 mg PO Q6HR PRN PRN Reason: Moderate Anxiety Aspirin (Aspirin 325 Mg Tab) 325 mg PO ONCE ONE Stop: 12/05/22 06:01 Atorvastatin Calcium (Atorvastatin 40 Mg Tab) 40 mg PO DAILY [facility] Last Admin: 12/04/22 08:13 Dose: 40 mg Atorvastatin Calcium (Atorvastatin 80 Mg Tab) 80 mg PO ONCE ONE Stop: 12/05/22 06:01 Cholecalciferol (Cholecalciferol 25 Mcg (1000 Iu) Tablet) 50 mcg PO DAILY [facility] Last Admin: 12/04/22 08:14 Dose: 50 mcg Cyanocobalamin (Cyanocobalamin 500 Mcg Tab) 1,000 mcg PO DAILY [facility] Last Admin: 12/04/22 08:13 Dose: 1,000 mcg Diltiazem HCl (Diltiazem Cd 240 Mg Cap.Er.24h) 240 mg PO DAILY [facility] Last Admin: 12/04/22 11:42 Dose: 240 mg Ezetimibe (Ezetimibe 10 Mg Tab) 10 mg PO DAILY [facility] Last Admin: 12/04/22 08:13 Dose: 10 mg Heparin Sodium (Porcine) 10, (000 unit/ Sodium Chloride) 1,001 mls @ 999 mls/hr IRRIGATION ONCE PRN PRN Reason: INTRA-OP Stop: 12/05/22 23:00 Heparin Sodium (Porcine) 2,500 (unit/ Sodium Chloride) 250.5 mls @ 250 mls/hr IRRIGATION ONCE PRN PRN Reason: INTRA-OP Stop: 12/05/22 23:00 Sodium Chloride 1,000 ml/ IV (Solution) 1,000 mls @ 302.094 mls/hr IV .Q3H19M ONE Stop: 12/04/22 21:52 Losartan Potassium (Losartan 25 Mg Tab) 25 mg PO DAILY [facility] Last Admin: 12/04/22 08:14 Dose: 25 mg Naloxone HCl (Naloxone 0.4 Mg/Ml 1 Ml Vial) 0.2 mg IV Q2M PRN PRN Reason: Opioid Reversal Nitroglycerin (Nitroglycerin Oint 1 Inch/Gm Packet) 0.5 inch TOPICAL Q8HR [facility] Last Admin: 12/04/22 15:10 Dose: Not Given Nitroglycerin (Nitroglycerin Sl Tabs 0.4 Mg Tab) 0.4 mg SUBLINGUAL Q5M PRN PRN Reason: Chest Pain Ondansetron HCl (Ondansetron 4 Mg/2 Ml Vial) 4 mg IVP Q6HR PRN PRN Reason: Nausea And Vomiting Last Admin: 12/03/22 21:57 Dose: 4 mg Pantoprazole Sodium (Pantoprazole 40 Mg Tablet) 40 mg PO DAILY@0730 [facility] Last Admin: 12/04/22 06:24 Dose: 40 mg PHYSICAL EXAMINATION: GENERAL: The patient is alert and oriented x4, Well developed, well nourished. Morbidly obese HEENT: Pupils are round and equally reacting to light. EOMI. no scleral icterus. No conjunctival pallor. Normocephalic, atraumatic. No pharyngeal erythema. No thyromegaly. CARDIOVASCULAR: S1 and S2 muffled PULMONARY: diminished breath sounds bilaterally with no wheezing or rhonchi noted. ABDOMEN: soft. Nontender on exam. obese. non-distended, normoactive bowel sounds. No palpable organomegaly. MUSCULOSKELETAL: No joint swelling or deformity. EXTREMITIES: No cyanosis, clubbing, or pedal edema. NEUROLOGICAL: Gross neurological examination did not reveal any focal deficits. SKIN: No rashes. Assessment: Chest pain, possible unstable angina Diabetes mellitus, type II Hypertension Line hyperlipidemia History of supraventricular tachycardia GI prophylaxis DVT prophylaxis Full code Plan: Recommend to continue with current medications and management with cardiology following. Patient underwent stress test and unable to exclude reversible ischemia and cardiology following and will plan on cardiac catheterization in the a.m. Recommend telemetry monitoring and will follow-up with repeat labs Patient okay to resume diet and will be nothing by mouth at midnight Will await cardiac catheterization and discuss further with cardiology The impression and plan of care has been dictated by Shayna Gilmore, nurse practitioner as directed. Dr. Uri MD I have performed a history and examination and MDM of this patient, discussed the same with the dictator, and agree with the dictator's assessment and plan as written ,documented as a scribe. Based on total visit time, I have performed more than 50% of the visit. Any additional findings or plans will be noted. Objective - Vital Signs Vital signs: Vital Signs Temp 97.7 F 12/04/22 07:00 Pulse 75 12/04/22 07:00 Resp 16 12/04/22 07:00 BP 142/81 12/04/22 07:00 Pulse Ox 96 12/04/22 07:00 FiO2 Intake & Output 12/03/22 12/04/22 12/04/22 18:59 06:59 18:59 Weight 100.698 kg 100.698 kg Other: Voiding Method Toilet Toilet # Voids 2 - Labs CBC & Chem 7: 12/03/22 13:09 12/03/22 13:09 Labs: Abnormal Lab Results - Last 24 Hours (Table) 12/03/22 12/03/22 Range/Units 13:09 13:09 D-Dimer 0.98 H (<0.60) mg/L FEU Glucose 102 H (74-99) mg/dL AST 38 H (14-36) U/L
[2022-12-04 20:48] LABS: Glucose,Whole Blood 119 mg/dL (70-110)
[2022-12-05] MEDS: BUTALB/APAP/CAFF 50-325-40MG TAB PO PRN (00:54)
[2022-12-05] MEDS: PANTOPRAZOLE 40 MG TABLET PO SCH (05:59)
[2022-12-05] MEDS ORDERED: ATORVASTATIN 80 MG TAB PO ONE (06:00)
[2022-12-05] MEDS ORDERED: ASPIRIN 325 MG TAB PO ONE (06:00)
[2022-12-05 06:04] LABS: Glucose,Whole Blood 111 mg/dL (70-110)
[2022-12-05] MEDS ORDERED: HEPARIN SODIUM,PORCINE 10,000 UNIT in SODIUM CHLORIDE 0.9% 1,000 ML IRRIGATION PRN (07:00)
[2022-12-05] MEDS ORDERED: HEPARIN SODIUM,PORCINE 2,500 UNIT in SODIUM CHLORIDE 0.9% 250 ML IRRIGATION PRN (07:00)
[2022-12-05] MEDS: NITROGLYCERIN OINT 1 INCH/GM PACKET TOPICAL SCH ×2 (08:32→15:16)
[2022-12-05] MEDS: ATORVASTATIN 40 MG TAB PO SCH (08:33)
[2022-12-05] MEDS: EZETIMIBE 10 MG TAB PO SCH (08:33)
[2022-12-05] MEDS: LOSARTAN 25 MG TAB PO SCH (08:38)
[2022-12-05] MEDS: CHOLECALCIFEROL 25 MCG (1000 IU) TABLET PO SCH (08:38)
[2022-12-05] MEDS: CYANOCOBALAMIN 500 MCG TAB PO SCH (08:38)
[2022-12-05] MEDS: DILTIAZEM CD 240 MG CAP.ER.24H PO SCH (08:39)
[2022-12-05 09:24] LABS: Basophils # (A) 0.08 X 10*3/uL (0.00-0.10); Basophils % (A) 1.4 %; Eosinophils # (A) 0.24 X 10*3/uL (0.04-0.35); Eosinophils % (A) 4.3 %; HCT 37.8 % (37.2-46.3); HGB 11.9 g/dL (12.0-15.0); Immature Grans, Automated 0.2 %; Lymphocytes # (A) 1.57 X 10*3/uL (0.90-5.00); Lymphocytes % (A) 28.3 %; MCH 28.1 pg (27.0-32.0); MCHC 31.5 g/dL (32.0-37.0); MCV 89.4 fL (80.0-97.0); Mean Platelet Volume 11.8 fL (9.5-12.2); Monocytes # (A) 1.03 X 10*3/uL (0.20-1.00); Monocytes % (A) 18.6 %; NRBC Per 100 WBC 0 /100 WBCS (0.0-0.0); Neutrophils # (A) 2.61 X 10*3/uL (1.80-7.70); Neutrophils % (A) 47.2 %; Platelet Count 242 X 10*3/uL (140-440); RBC 4.23 X 10*6/uL (4.10-5.20); RDW 15.4 % (11.5-14.5); WBC 5.54 X 10*3/uL (4.50-10.00)
[2022-12-05 09:54] LABS: African American GFR (CKD) 97.1 (60.0-200.0); Anion Gap 12.1 mmol/L (10.00-18.00); BUN/Creat Ratio 28.05 Ratio (12.00-20.00); Blood Urea Nitrogen 19.1 mg/dL (9.0-27.0); Calcium 9.5 mg/dL (8.7-10.3); Carbon Dioxide 22.2 mmol/L (20.0-27.5); Magnesium 1.9 mg/dL (1.5-2.4); Non-African American GFR(CKD) 83.7 (60.0-200.0); Potassium 4.1 mmol/L (3.5-5.5)
--- NOTE | 2022-12-05 10:35 | P.PN ---
Subjective Progress Note Date: 12/05/22 Principal diagnosis: Chest pain The patient is a pleasant 77-year-old female patient with a past medical history significant for diabetes and hypertension and dyslipidemia and history of SVT according to her who just moved from [place] presented to the hospital complaining of chest discomfort. She was in her usual state of health until yesterday when she was getting dressed to get out of home and started experiencing discomfort in the middle of the chest as a sharp kind of discomfort was no radiation to the arms or neck or shoulders andassociates symptoms of shortness of breath or sweating or dizziness or lightheadedness or any feeling of heart racing or fluttering or any presyncope or syncope. She decided to come to the hospital for further investigation. She underwent a workup including EKG showing sinus rhythm was Q wave anteriorly. She also underwent cardiac enzymes came in to be unremarkable with a chest x-ray showed chronic changes with no acute abnormalities. The patient has been chest pain-free since she came into the hospital. No history of coronary artery disease but she does have diabetes and hypertension and dyslipidemia. No history of smoking. The physical examination is remarkable for slightly elevated blood pressure but she does not have hypertension crisis. She has a regular rhythm with a clear breathing sounds bilaterally and no carotid bruit or lower extremity edema noted. December 052022 The patient was seen this morning which is chest pain-free. She underwent myocardial perfusion imaging stress test and that came in to be abnormal concerning for severe CAD and the heart catheterization was advised and going to be done in the morning. Assessment Chest discomfort, atypical, has resolved Multiple risk factors for CAD including diabetes and hypertension and dyslipidemia Abnormal EKG showing Q wave anteriorly concerning for prior myocardial infarction. Abnormal myocardial perfusion imaging stress test Plan Proceed with coronary angiogram Objective - Vital Signs Vital signs: Vital Signs Temp 97.8 F 12/05/22 07:00 Pulse 74 12/05/22 07:00 Resp 18 12/05/22 07:00 BP 136/77 12/05/22 07:00 Pulse Ox 95 12/05/22 07:42 FiO2 Intake & Output 12/04/22 12/05/22 12/05/22 18:59 06:59 18:59 Intake Total 118 Balance 118 Intake: Oral 118 Other: Voiding Method Toilet Toilet # Voids 3 1 0 - Labs CBC & Chem 7: 12/05/22 06:19 12/05/22 06:19 Labs: Abnormal Lab Results - Last 24 Hours (Table) 12/04/22 12/05/22 12/05/22 Range/Units 20:47 06:03 06:19 Hgb 11.9 L (12.0-15.0) g/dL MCHC 31.5 L (32.0-37.0) g/dL RDW 15.4 H (11.5-14.5) % Monocytes # 1.03 H (0.20-1.00) X 10*3/uL BUN/Creatinine Ratio (12.00-20.00) Ratio Glucose (70-110) mg/dL POC Glucose (mg/dL) 119 H 111 H (70-110) mg/dL 12/05/22 Range/Units 06:19 Hgb (12.0-15.0) g/dL MCHC (32.0-37.0) g/dL RDW (11.5-14.5) % Monocytes # (0.20-1.00) X 10*3/uL BUN/Creatinine Ratio 28.05 H (12.00-20.00) Ratio Glucose 119 H (70-110) mg/dL POC Glucose (mg/dL) (70-110) mg/dL
[2022-12-05] MEDS ORDERED: IV FLUID CONTINUATION 1,000 ML IV ONE (10:45)
[2022-12-05] MEDS ORDERED: HEPARIN SODIUM 1,000 UN/ML (10ML VL) ONE (10:47)
[2022-12-05] MEDS ORDERED: LIDOCAINE 1% INJ 10MG/ML (5 ML VIAL-PF) SQ ONE ×2 (10:55→10:57)
[2022-12-05] MEDS ORDERED: MIDAZOLAM 2 MG/2 ML VIAL IV ONE ×2 (10:55→10:57)
[2022-12-05] MEDS ORDERED: VERAPAMIL SYRINGE (5 MG/10 ML) INTRAARTER ONE ×2 (10:57→10:59)
[2022-12-05] MEDS ORDERED: HEPARIN SODIUM 1,000 UN/ML (10ML VL) IV ONE (11:04)
[2022-12-05] MEDS ORDERED: IOPAMIDOL-370 125ML BTL INJ ONE (11:11)
[2022-12-05] MEDS ORDERED: RX INFO: IV CONTRAST WAS GIVEN 1 EACH MISC MISCELLANE PRN (11:18)
--- NOTE | 2022-12-05 11:21 | P.PCN ---
Date of Procedure: 12/05/22 Operative Findings: CARDIAC CATHETERIZATION PERFORMING PHYSICIAN: Omar Clarke MD, RPVI PROCEDURE PERFORMED: 1. Selective right and left coronary angiogram 2. Left heart catheterization 3. Ultrasound-guided access of the right radial artery 4. Right radial artery angiogram INDICATION: Chest discomfort in this 69-year-old female patient was admitted to the hospital and underwent myocardial perfusion imaging stress test came in to be abnormal showing lateral ischemia COMPLICATION: None APPROACH: Right radial artery LEVEL OF SEDATION: Moderate with a sedation length of 15 minutes PROCEDURE DESCRIPTION: After obtaining an informed consent, the patient was brought to cardiac prosthetics lab technician. Local anesthesia was performed using lidocaine subcutaneously. The right radial artery was cannulated using Seldinger technique, the guidewire passed easily, following that we advanced a 5-[place] sheath dilator assembly, the wire and dilator were removed and sheath was flushed. Following that, 2 mg of verapamil along with 4000 unit heparin were given. Selective right and left coronary angiogram using a 6-[place] JR4 and JL 3.5 catheters. Following that we did left heart catheterization using 6-[place] pigtail catheter. The procedure was completed there was no complication. SELECTIVE CORONARY ANGIOGRAM: The right coronary artery: Large caliber vessel and a dominant vessel. The RCA is angiographically normal Left main: Is angiographically normal. Bifurcates into LCx and LAD The left circumflex: Is large caliber vessel nondominant vessel. Its angiographically normal. Gives rises into an OM which appeared to be normal The left anterior descending artery: Is angiographically normal proximally. Gives rise to a large diagonal branch which appeared to be angiographically normal. The mid LAD by the bifurcation of the diagonal has a lesion appears to be in the range of 40-50%. The LAD distally appears to be angiographically no HEMODYNAMICS: LVDP was about 14 mmHg was no significant gradient across aortic valve CONCLUSION: 1. Intermediate disease involving the mid LAD 2. Normal left-sided filling pressure POSTPROCEDURE MANAGEMENT: Medical treatment and follow-up with the patient
[2022-12-05] MEDS ORDERED: SODIUM CHLORIDE 0.9% 1,000 ML IV SCH (11:30)
[2022-12-05 13:38] VITALS: TEMP 98
[2022-12-05 15:24] VITALS: BP 111/71; PULSE 70; RESP 18
--- NOTE | 2022-12-09 06:40 | P.DS ---
Providers Date of admission: 12/03/22 15:08 Expected date of discharge: 12/05/22 Attending physician: Gila Grewal Consults: 12/03/22 15:07 Consult Physician Routine Consulting Provider: Omar Clarke Consult Reason/Comments: cp Do you want consulting provider notified?: Yes Primary care physician: Stated None Hospital Course: Final diagnosis Chest pain, possible unstable angina, status post cardiac catheterization with no stenting Diabetes mellitus, type II Hypertension hyperlipidemia Morbid obesity with BMI of 41.9 History of supraventricular tachycardia GI prophylaxis DVT prophylaxis Full code Discharge disposition Patient is being discharged in a stable condition with guarded prognosis to home. Patient will follow-up with Dr. Kahlil Grewal in the outpatient setting upon discharge. Patient is to follow-up with cardiology Dr. Clarke outpatient as scheduled. Total time taken is greater than 35 minutes. Hospital course This is a 77-year-old female who was recently admitted with chest pain underwent stress testing which could not exclude ischemia and cardiology following recommending cardiac catheterization and patient agreeable. Patient did undergo cardiac catheterization with no stenting needed recommend medical management and close outpatient follow-up. Patient has been cleared by cardiology for discharge today. Please refer to cardiology note for further HPI. Patient reports to feeling well and denies chest pain and would like to go home. Currently no reports of chest pain, shortness of breath, or palpitations. Patient is afebrile. No reports of nausea or vomiting and patient is tolerating diet. Patient will be discharged home today. Physical exam: Gen: This is a 77-year-old female who is awake, alert and oriented 3, well-developed, well-nourished, morbidly obese HEENT: Head is atraumatic, normocephalic. Pupils equal, round. Sclerae is anicteric. NECK: Supple. No JVD. No lymphadenopathy. No thyromegaly. LUNGS: Clear to auscultation. No wheezes or rhonchi. No intercostal retractions. HEART: Regular rate and rhythm. No murmur. ABDOMEN: Soft. Bowel sounds are present. No masses. No tenderness. EXTREMITIES: No pedal edema. No calf tenderness. NEUROLOGICAL: Patient is awake, alert and oriented x3. Cranial nerves 2 through 12 are grossly intact. Please refer to medication reconciliation sheet for a list of medications. The impression and plan of care has been dictated by Shayna Gilmore, Nurse Practitioner as directed. Dr. Uri MD I have performed a history and examination and MDM of this patient, discussed the same with the dictator, and agree with the dictator's assessment and plan as written ,documented as a scribe. Based on total visit time, I have performed more than 50% of the visit. Patient Condition at Discharge: Stable Plan - Discharge Summary New Discharge Prescriptions: Continue Losartan Potassium [Cozaar] 25 mg PO DAILY dilTIAZem HCL [Cardizem CD] 240 mg PO DAILY Cholecalciferol (Vitamin D3) [Vitamin D3] 50 mcg PO DAILY Omeprazole [PriLOSEC] 20 mg PO DAILY Atorvastatin [Lipitor] 40 mg PO DAILY Butalb/APAP/Caff 50-325-40Mg [Fioricet 50-325-40] 1 tab PO DAILY PRN PRN Reason: Headache HYDROcodone/APAP 5-325MG [[place] 5-325] 1 tab PO TID PRN PRN Reason: Pain Ezetimibe [Zetia] 10 mg PO DAILY Cyanocobalamin (Vitamin B-12) [Vitamin B-12] 1,000 mcg PO DAILY Discharge Medication List Cholecalciferol (Vitamin D3) [Vitamin D3] 50 mcg PO DAILY 03/10/20 [History] Losartan Potassium [Cozaar] 25 mg PO DAILY 03/10/20 [History] Omeprazole [PriLOSEC] 20 mg PO DAILY 03/10/20 [History] dilTIAZem HCL [Cardizem CD] 240 mg PO DAILY 03/10/20 [History] Atorvastatin [Lipitor] 40 mg PO DAILY 11/22/22 [History] Butalb/APAP/Caff 50-325-40Mg [Fioricet 50-325-40] 1 tab PO DAILY PRN 11/22/22 [History] Cyanocobalamin (Vitamin B-12) [Vitamin B-12] 1,000 mcg PO DAILY 11/22/22 [History] Ezetimibe [Zetia] 10 mg PO DAILY 11/22/22 [History] HYDROcodone/APAP 5-325MG [[place] 5-325] 1 tab PO TID PRN 11/22/22 [History] Follow up Appointment(s)/Referral(s): Bre Osman MD [STAFF PHYSICIAN] - 1 Week Omar Clarke MD [STAFF PHYSICIAN] - 1 Week Patient Instructions/Handouts: *Surgery [facility] - After Heart Catheterization - Gang Leader Instructions Activity/Diet/Wound Care/Special Instructions: Activity Limited until follow-up Follow-up with primary care provider on discharge and establish Follow-up with cardiology outpatient Continue taking medications as prescribed Continue heart healthy diet Discharge Disposition: HOME SELF-CARE
== END 2022-12-05 17:32 | disposition home or self-care (01) | DRG 287 ==
LOC: EC 12:39 → 6NMEDSUR 15:08 → OBSVTOIN 15:08 → 6NMEDSUR 17:20 → UNDODISOB 12-05 17:32
PROVIDERS: ADMIT Hospitalist; ATTEND Hospitalist
PROC: B2111ZZ Fluoroscopy of Multiple Coronary Arteries using Low Osmolar Contrast (ICD-10-PCS; principal; 2022-12-05 10:16)
PROC: 4A023N7 Measurement of Cardiac Sampling and Pressure, Left Heart, Percutaneous Approach (ICD-10-PCS; principal; 2022-12-05 10:16)
DX: I25.110 Atherosclerotic heart disease of native coronary artery with unstable angina pectoris (principal); Z68.41 Body mass index [BMI] 40.0-44.9, adult; D50.9 Iron deficiency anemia, unspecified; E11.9 Type 2 diabetes mellitus without complications; E66.01 Morbid (severe) obesity due to excess calories; E78.00 Pure hypercholesterolemia, unspecified; I25.84 Coronary atherosclerosis due to calcified coronary lesion; I44.0 Atrioventricular block, first degree; I10 Essential (primary) hypertension; I25.2 Old myocardial infarction; N81.4 Uterovaginal prolapse, unspecified; Z79.899 Other long term (current) drug therapy; Z88.5 Allergy status to narcotic agent; Z88.0 Allergy status to penicillin; Z88.8 Allergy status to other drugs, medicaments and biological substances
CPT/HCPCS: 36415; 71046; 71275; 76937; 78452; 80048; 80053; 82150; 83690; 83735; 83880; 84484; 85025; 85379; 85610; 85730; 93005; 93017; 93306; 93458; 94760; 96374; 99285

== ENCOUNTER 2023-02-14 18:58 | Emergency (ER) | payer MEDICARE ==
[2023-02-14 19:02] VITALS: TEMP 97.6
[2023-02-14] MEDS ORDERED: SODIUM CHLORIDE 0.9% 500 ML 500 ML IV STA (19:25)
[2023-02-14] MEDS ORDERED: SODIUM CHLORIDE 0.9% 1,000 ML IV STA (19:25)
[2023-02-14] MEDS ORDERED: KETOROLAC 15 MG/ML 1 ML VIAL IVP STA (19:26)
--- NOTE | 2023-02-14 19:31 | ED ---
Chest Pain HPI - General Chief Complaint: Chest Pain Stated Complaint: chest pain Time Seen by Provider: 02/14/23 19:12 Source: patient, RN notes reviewed Mode of arrival: ambulatory Limitations: no limitations - History of Present Illness Initial Comments: 69-year-old female with a history of diabetes hypertension and SVT interstitial lung disease who presents with complaints of not feeling well. She woke up this way this morning she also complains she has some left-sided chest pain and left neck pain. He stated 9/10 severity sharp in nature she denies any overt fevers chills sweats cough or phlegm production no trauma. MD Complaint: chest pain, other - Related Data Home Medications Medication Instructions Recorded Confirmed Cholecalciferol (Vitamin D3) 50 mcg PO DAILY 03/10/20 02/14/23 [Vitamin D3] Losartan Potassium [Cozaar] 25 mg PO DAILY 03/10/20 02/14/23 Omeprazole [PriLOSEC] 20 mg PO DAILY 03/10/20 02/14/23 dilTIAZem HCL [Cardizem CD] 240 mg PO DAILY 03/10/20 02/14/23 Atorvastatin [Lipitor] 40 mg PO DAILY 11/22/22 02/14/23 Butalb/APAP/Caff 50-325-40Mg 1 tab PO DAILY PRN 11/22/22 02/14/23 [Fioricet 50-325-40] Cyanocobalamin (Vitamin B-12) 1,000 mcg PO DAILY 11/22/22 02/14/23 [Vitamin B-12] Ezetimibe [Zetia] 10 mg PO DAILY 11/22/22 02/14/23 HYDROcodone/APAP 5-325MG [[place] 1 tab PO TID PRN 11/22/22 02/14/23 5-325] Allergies Allergy/AdvReac Type Severity Reaction Status Date / Time meperidine [From Demerol] Allergy Unknown Verified 02/14/23 20:25 amoxicillin [From Augmentin] AdvReac Flu like Verified 02/14/23 20:25 symptoms, Nausea, dizziness clavulanic acid AdvReac Flu like Verified 02/14/23 20:25 [From Augmentin] symptoms, Nausea, dizziness iron AdvReac Vomiting Verified 02/14/23 20:25 Review of Systems ROS Statement: Those systems with pertinent positive or pertinent negative responses have been documented in the HPI. ROS Other: All systems not noted in ROS Statement are negative. EKG Findings - EKG Results: EKG: interpreted by ERMD (EKG interpreted by me shows sinus rhythm with first- degree AV block rate 84 UT interval 242 QRS duration 90 QT since QTC 369/410 indeterminate axis left anterior fascicular block poor R-wave progression no acute changes seen) Past Medical History Past Medical History: Diabetes Mellitus, Hyperlipidemia, Hypertension, Supraventricular Tachycardia (SVT) Additional Past Medical History / Comment(s): Iron deficiency anemia, SVT, vasovagal, prolapsed uterus History of Any Multi-Drug Resistant Organisms: None Reported Past Surgical History: Back Surgery Additional Past Surgical History / Comment(s): ankle surgery, cataract surgery Past Anesthesia/Blood Transfusion Reactions: No Reported Reaction Past Psychological History: No Psychological Hx Reported Smoking Status: Never smoker Past Alcohol Use History: None Reported Past Drug Use History: None Reported - Past Family History Mother Additional Family Medical History / Comment(s): heart problems Sister(s) Family Medical History: Cancer Additional Family Medical History / Comment(s): of pancreatic cancer General Exam - General Exam Comments Initial Comments: This is a well-developed well-nourished awake alert oriented 4 Limitations: no limitations General appearance: alert, anxious Head exam: Present: atraumatic, normocephalic, normal inspection Eye exam: Present: normal appearance, PERRL, EOMI. Absent: scleral icterus, conjunctival injection, periorbital swelling ENT exam: Present: mucous membranes dry Neck exam: Present: normal inspection, tenderness (Tenderness over the left lateral neck musculature), full ROM ( no spinous process tenderness), other (No better JVD or bruits). Absent: meningismus, lymphadenopathy Respiratory exam: Present: normal lung sounds bilaterally, chest wall tenderness (Tennis palpation along the left lateral and medial costochondral costal sternal margins). Absent: respiratory distress, wheezes, rales, rhonchi, stridor Cardiovascular Exam: Present: regular rate, normal rhythm, normal heart sounds. Absent: systolic murmur, diastolic murmur, rubs, gallop, clicks GI/Abdominal exam: Present: soft, tenderness (Mild tenderness palpation of left upper quadrant no guarding rebound masses or bruits), normal bowel sounds. Absent: distended, guarding, rebound, rigid Extremities exam: Present: normal inspection, full ROM, normal capillary refill. Absent: tenderness, pedal edema, joint swelling, calf tenderness Back exam: Present: normal inspection Neurological exam: Present: alert, oriented X3, CN II-XII intact Psychiatric exam: Present: normal affect, anxious Skin exam: Present: warm, dry, intact, normal color. Absent: rash Course Vital Signs 02/14/23 02/14/23 02/14/23 19:00 19:12 20:49 Temperature 97.6 F Pulse Rate 85 81 74 Respiratory 22 18 16 Rate Blood Pressure 169/102 137/83 125/65 O2 Sat by Pulse 99 97 97 Oximetry - Reevaluation(s) Reevaluation #1: 02/14/23 21:06 Today's EKG compared with one dated 12/03/22 no changes similar configuration Chest Pain MDM - [facility] X-ray turgor by me no acute findings. Patient is feeling much improved after the fluids and IV Toradol. We did discuss fluid volume status as well as borderline potassium and magnesium levels which we discussed ways again through diet. Patient will be discharged to follow-up with her doctor the presentation is consistent with myofascial pain as well as dehydrationWas pt. sent in by a medical professional or institution (, PA, MEETING MANAGER, urgent care, hospital, or [facility]...) When possible be specific @ -No Did you speak to anyone other than the patient for history (EMS, parent, family, police, friend...)? What history was obtained from this source @ -No Did you review nursing and triage notes (agree or disagree)? Why? @ -I reviewed and agree with nursing and triage notes Were old charts reviewed (outside hosp., previous admission, EMS record, old EKG, old radiological studies, urgent care reports/EKG's, [facility] records)? Report findings @ -No old charts were reviewed Differential Diagnosis (chest pain, altered mental status, abdominal pain women, abdominal pain men, vaginal bleeding, weakness, fever, dyspnea, syncope, h eadache, dizziness, GI bleed, back pain, seizure, CVA, palpatations, mental health, musculoskeletal)? @ -Chest pain, dehydration EKG interpreted by me (3pts min.). @ -As above X-rays interpreted by me (1pt min.). @ -As above no acute process CT interpreted by me (1pt min.). @ -None done U/S interpreted by me (1pt. min.). @ -None done What testing was considered but not performed or refused? (CT, X-rays, U/S, labs)? Why? @ -None What meds were considered but not given or refused? Why? @ -None Did you discuss the management of the patient with other professionals (professionals i.e. DrHeidi, PA, MEETING MANAGER, lab, RT, psych nurse, social contact worker, plaster form maker, teacher, police booking officer, block and case maker)? Give summary @ -No Was smoking cessation discussed for >3mins.? @ -No Was critical care preformed (if so, how long)? @ -No Were there social determinants of health that impacted care today? How? (Homelessness, low income, unemployed, alcoholism, drug addiction, transportation, low edu. Level, literacy, decrease access to med. care, custodial, rehab)? @ -No Was there de-escalation of care discussed even if they declined (Discuss DNR or withdrawal of care, Hospice)? DNR status @ -No What co-morbidities impacted this encounter? (DM, HTN, Smoking, COPD, CAD, Cancer, CVA, ARF, Chemo, Hep., AIDS, mental health diagnosis, sleep apnea, morbid obesity)? @ -Diabetes Was patient admitted / discharged? Hospital course, mention meds given and route, prescriptions, significant lab abnormalities, going to OR and other pertinent info. @ -And she was discharged home instructions increase oral fluids and potassium- containing food products Undiagnosed new problem with uncertain prognosis? @ -No Drug Therapy requiring intensive monitoring for toxicity (Heparin, Nitro, Insulin, Cardizem)? @ -No Were any procedures done? @ -No Diagnosis/symptom? @ -Myofascial pain, dehydration Acute, or Chronic, or Acute on Chronic? @ -Acute Uncomplicated (without systemic symptoms) or Complicated (systemic symptoms)? @ -default Side effects of treatment? @ -No Exacerbation, Progression, or Severe Exacerbation? @ -No Poses a threat to life or bodily function? How? (Chest pain, [place], [place], pneumonia, PE, COPD, DKA, ARF, appy, cholecystitis, CVA, Diverticulitis, Homicidal, Suicidal, threat to staff... and all critical care pts) @ -No Disposition Clinical Impression: Myofascial pain, Dehydration Disposition: HOME SELF-CARE Condition: Good Instructions (If sedation given, give patient instructions): Musculoskeletal Pain (ED), Dehydration (ED) Additional Instructions: Increase oral fluids, eat potassium-containing foods such as bananas and orange issues follow-up with her doctor Is patient prescribed a controlled substance at d/c from ED?: No Referrals: None,Stated [Primary Care Provider] - 1-2 days Decision Date: 02/14/23 Decision Time: 21:22
[2023-02-14 20:02] LABS: Basophils % (A) 0 %; Eosinophils # (A) 0.2 k/uL (0-0.7); Eosinophils % (A) 2 %; HCT 41.6 % (34.0-46.0); HGB 13.3 gm/dL (11.4-16.0); Lymphocytes # (A) 3.2 k/uL (1.0-4.8); Lymphocytes % (A) 34 %; MCH 27.7 pg (25.0-35.0); MCHC 31.9 g/dL (31.0-37.0); Mean Platelet Volume 9.3; Monocytes # (A) 0.6 k/uL (0-1.0); Monocytes % (A) 7 %; Neutrophils # (A) 5.1 k/uL (1.3-7.7); Neutrophils % (A) 53 %; Platelet Count 291 k/uL (150-450); RBC 4.78 m/uL (3.80-5.40); RDW 13.9 % (11.5-15.5); WBC 9.5 k/uL (3.8-10.6)
--- NOTE | 2023-02-14 20:09 | XR ---
EXAMINATION TYPE: XR chest 2V DATE OF EXAM: 02/14/2023 8:04 PM COMPARISON: Chest x-ray 12/03/2022 TECHNIQUE: XR chest 2V . CLINICAL INDICATION:Female, 77 years old with history of Chest Pain; FINDINGS: Lungs/Pleura: Bibasilar atelectasis. No evidence for pneumothorax pleural effusion or focal consolida tion. Pulmonary vascularity: Unremarkable. Heart/mediastinum: Cardiomediastinal silhouette is partially obscured. No gross abnormality. Musculoskeletal: Multiple level degenerative disc disease changes seen throughout the spine. Other findings: Large hiatal hernia is redemonstrated. IMPRESSION: 1. Bibasilar atelectatic changes. 2. Redemonstration of large hiatal hernia.
[2023-02-14 20:24] LABS: ALT 20 U/L (4-34); AST 29 U/L (14-36); African American GFR (CKD) >90 (>60 ml/min/1.73 sqM); Albumin 4.5 g/dL (3.5-5.0); Alkaline Phosphatase 149 U/L (38-126); Anion Gap 9 mmol/L; Blood Urea Nitrogen 22 mg/dL (7-17); Calcium 9.4 mg/dL (8.4-10.2); Carbon Dioxide 27 mmol/L (22-30); Chloride 105 mmol/L (98-107); Glucose 132 mg/dL (74-99); Lipase 63 U/L (23-300); Magnesium 1.8 mg/dL (1.6-2.3); Non-African American GFR(CKD) 84 (>60 ml/min/1.73 sqM); Potassium 3.5 mmol/L (3.5-5.1); Sodium 141 mmol/L (137-145); Total Bilirubin 0.5 mg/dL (0.2-1.3); Total Protein 7.2 g/dL (6.3-8.2)
[2023-02-14 20:52] VITALS: BP 125/65; PULSE 74; RESP 16
[2023-02-14 21:04] LABS: Partial Thromboplastin Time 25.9 sec (22.0-30.0); Prothrombin Time 10.4 sec (9.0-12.0)
== END 2023-02-14 22:42 | disposition home or self-care (01) ==
LOC: EC 18:58
DX: E86.0 Dehydration (principal); M79.18 Myalgia, other site; E11.9 Type 2 diabetes mellitus without complications; I10 Essential (primary) hypertension; E78.5 Hyperlipidemia, unspecified; Z79.899 Other long term (current) drug therapy; Z88.0 Allergy status to penicillin; Z88.1 Allergy status to other antibiotic agents; Z88.5 Allergy status to narcotic agent; Z91.048 Other nonmedicinal substance allergy status
CPT/HCPCS: 36415; 93005; 85379; 83880; 80053; 83690; 83735; 84484; 85025; 85610; 85730; 71046; 99285; 96374; 96361 ×3; J1885

== ENCOUNTER 2023-05-02 19:07 | Emergency (ER) | payer MEDICARE ==
--- NOTE | 2023-05-02 19:20 | ED ---
Chest Pain HPI - General Chief Complaint: Chest Pain Stated Complaint: chest pain Time Seen by Provider: 05/02/23 19:19 Source: patient, RN notes reviewed, old records reviewed Mode of arrival: wheelchair Limitations: no limitations - History of Present Illness Initial Comments: This is a 77-year-old female to the ER today. Patient presents today for e valuation of chest pain left-sided arm pain back pain, left flank pain and pain to her left jaw. Patient is new to [facility] but has had multiple emergency department visits for chest pain or heart. As well as admissions. Patient has no shortness of breath and symptoms are improving patient's history of diabetes high blood pressure high cholesterol and SVT. No recent change in medications no fevers no travel show sick contacts pain and symptoms are improving on arrival MD Complaint: chest pain, other ((Pain left flank pain left jaw pain) -: hour(s) Onset: during rest Pain Location: substernal, left chest Pain Radiation: LUE Severity: mild Severity scale (1-10): 2 Quality: tightness Consistency: constant Improves With: nothing Worsens With: nothing Treatments Prior to Arrival: none - Related Data Home Medications Medication Instructions Recorded Confirmed Cholecalciferol (Vitamin D3) 50 mcg PO DAILY 03/10/20 02/14/23 [Vitamin D3] Losartan Potassium [Cozaar] 25 mg PO DAILY 03/10/20 02/14/23 Omeprazole [PriLOSEC] 20 mg PO DAILY 03/10/20 02/14/23 dilTIAZem HCL [Cardizem CD] 240 mg PO DAILY 03/10/20 02/14/23 Atorvastatin [Lipitor] 40 mg PO DAILY 11/22/22 02/14/23 Butalb/APAP/Caff 50-325-40Mg 1 tab PO DAILY PRN 11/22/22 02/14/23 [Fioricet 50-325-40] Cyanocobalamin (Vitamin B-12) 1,000 mcg PO DAILY 11/22/22 02/14/23 [Vitamin B-12] Ezetimibe [Zetia] 10 mg PO DAILY 11/22/22 02/14/23 HYDROcodone/APAP 5-325MG [[place] 1 tab PO TID PRN 11/22/22 02/14/23 5-325] Allergies Allergy/AdvReac Type Severity Reaction Status Date / Time meperidine [From Demerol] Allergy Unknown Verified 05/02/23 19:12 amoxicillin [From Augmentin] AdvReac Flu like Verified 05/02/23 19:12 symptoms, Nausea, dizziness clavulanic acid AdvReac Flu like Verified 05/02/23 19:12 [From Augmentin] symptoms, Nausea, dizziness iron AdvReac Vomiting Verified 05/02/23 19:12 Review of Systems ROS Statement: Those systems with pertinent positive or pertinent negative responses have been documented in the HPI. ROS Other: All systems not noted in ROS Statement are negative. EKG Findings - EKG Comments: EKG Findings:: EKG is sinus 77 VA-2 37 QRS 86 QTc 400 Past Medical History Past Medical History: Diabetes Mellitus, Hyperlipidemia, Hypertension, Supraventricular Tachycardia (SVT) Additional Past Medical History / Comment(s): Iron deficiency anemia, SVT, vasovagal, prolapsed uterus History of Any Multi-Drug Resistant Organisms: None Reported Past Surgical History: Back Surgery Additional Past Surgical History / Comment(s): ankle surgery, cataract surgery Past Anesthesia/Blood Transfusion Reactions: No Reported Reaction Past Psychological History: No Psychological Hx Reported Smoking Status: Never smoker Past Alcohol Use History: None Reported Past Drug Use History: None Reported - Past Family History Mother Additional Family Medical History / Comment(s): heart problems Sister(s) Family Medical History: Cancer Additional Family Medical History / Comment(s): of pancreatic cancer General Exam General appearance: alert, in no apparent distress Head exam: Present: atraumatic, normocephalic, normal inspection Eye exam: Present: normal appearance, PERRL, EOMI. Absent: scleral icterus, conjunctival injection, periorbital swelling ENT exam: Present: normal exam, mucous membranes moist Neck exam: Present: normal inspection. Absent: tenderness, meningismus, lymphadenopathy Respiratory exam: Present: normal lung sounds bilaterally. Absent: respiratory distress, wheezes, rales, rhonchi, stridor Cardiovascular Exam: Present: regular rate, normal rhythm, normal heart sounds. Absent: systolic murmur, diastolic murmur, rubs, gallop, clicks GI/Abdominal exam: Present: soft, normal bowel sounds. Absent: distended, tenderness, guarding, rebound, rigid Extremities exam: Present: normal inspection, full ROM, normal capillary refill. Absent: tenderness, pedal edema, joint swelling, calf tenderness Back exam: Present: normal inspection Neurological exam: Present: alert, oriented X3, CN II-XII intact Psychiatric exam: Present: normal affect, normal mood Skin exam: Present: warm, dry, intact, normal color. Absent: rash Course Vital Signs 05/02/23 05/02/23 05/02/23 19:10 19:55 20:46 Temperature 98.8 F Pulse Rate 82 67 68 Respiratory 22 20 18 Rate Blood Pressure 135/103 122/81 114/78 O2 Sat by Pulse 97 96 98 Oximetry 05/02/23 22:29 Temperature 98.2 F Pulse Rate 70 Respiratory 18 Rate Blood Pressure 137/88 O2 Sat by Pulse 94 L Oximetry - Reevaluation(s) Reevaluation #1: 05/02/23 22:59 Medical records reviewed Reevaluation #2: 05/02/23 22:59 Patient states she is without pain without symptoms Reevaluation #3: 05/02/23 22:59 Patient informed results questions answered, patient prefers discharge Reevaluation #4: 05/02/23 19:20 Was pt. sent in by a medical professional or institution (, PA, TOBACCO SHAKER, urgent care, hospital, or [place] [facility]...) When possible be specific @ -no Did you speak to anyone other than the patient for history (EMS, parent, family, police, friend...)? What history was obtained from this source @ -no Did you review nursing and triage notes (agree or disagree)? Why? @ -agree Are old charts reviewed (outside hosp., previous admission, EMS record, old EKG, old radiological studies, urgent care reports/EKG's, [place] [facility] records)? Report findings @ -yes Differential Diagnosis (chest pain, altered mental status, abdominal pain women, abdominal pain men, vaginal bleeding, weakness, fever, dyspnea, syncope, headache, dizziness, GI bleed, back pain, seizure, CVA, palpatations, mental health, musculoskeletal)? @ -prior EKG interpreted by me (3pts min.). @ -yes X-rays interpreted by me (1pt min.). @ -yes CT interpreted by me (1pt min.). @ -no U/S interpreted by me (1pt. min.). @ -no What testing was considered but not performed or refused? (CT, X-rays, U/S, labs)? Why? @ -none What meds were considered but not given or refused? Why? @ -none Did you discuss the management of the patient with other professionals (professionals i.e. , PA, TOBACCO SHAKER, lab, RT, psych nurse, neonatal social worker, industrial millwright, teacher, corporate compliance officer, oil field caser)? Give summary @ -no Was smoking cessation discussed for >3mins.? @ -no Was critical care preformed (if so, how long)? @ -no Were there social determinants of health that impacted care today? How? ( Homelessness, low income, unemployed, alcoholism, drug addiction, transportation, low edu. Level, literacy, decrease access to med. care, custodial, rehab)? @ -none Was there de-escalation of care discussed even if they declined (Discuss DNR or withdrawal of care, Hospice)? DNR status @ -no What co-morbidities impacted this encounter? (DM, HTN, Smoking, COPD, CAD, Cancer, CVA, ARF, Chemo, Hep., AIDS, mental health diagnosis, sleep apnea, morbid obesity)? @ -none Was patient admitted / discharged? Hospital course, mention meds given and route, prescriptions, significant lab abnormalities, going to OR and other pertinent info. @ - 69 female to the emergency department for nonspecific chest pain. She has jaw pain back pain flank pain with history of same. Patient has had recent cardiac catheterization which was normal, troponin EKG and negative patient does not want to stay in the hospital Discharged Undiagnosed new problem with uncertain prognosis? @ -no Drug Therapy requiring intensive monitoring for toxicity (Heparin, Nitro, Insulin, Cardizem)? @ -no Were any procedures done? @ -no Diagnosis/symptom? @ -Chest pain NOS Acute, or Chronic, or Acute on Chronic? @ -Acute Uncomplicated (without systemic symptoms) or Complicated (systemic symptoms)? @ -Complicated Side effects of treatment? @ -no Exacerbation, Progression, or Severe Exacerbation? @ -exacerbation Poses a threat to life or bodily function? How? (Chest pain, [place], [place], pneumonia, PE, COPD, DKA, ARF, appy, cholecystitis, CVA, Diverticulitis, Homicidal, Suicidal, threat to staff... and all critical care pts) @ -yes Reevaluation #5: 05/02/23 19:20 Differential Chest Pain: Stable Angina, Unstable Angina, STEMI, NSTEMI Aortic Dissection, Pneumothorax, Musculoskeletal, Esophageal Spasm GERD, Cholecystitis, Pancreatitis, Zoster, this is not meant to be an all-inclusive list. Chest Pain MDM - MDM 69 female to the emergency department for nonspecific chest pain. She has jaw pain back pain flank pain with history of same. Patient has had recent cardiac catheterization which was normal, troponin EKG and negative patient does not want to stay in the hospital Disposition Clinical Impression: Weakness, Chest pain, Hiatal hernia Disposition: HOME SELF-CARE Condition: Good Instructions (If sedation given, give patient instructions): Chest Pain (ED) Is patient prescribed a controlled substance at d/c from ED?: No Referrals: Ricci Smith MD [Primary Care Provider] - 1-2 days Time of Disposition: 21:50
--- NOTE | 2023-05-02 19:50 | XR ---
EXAMINATION TYPE: XR chest 1V portable DATE OF EXAM: 05/02/2023 7:44 PM COMPARISON: Chest radiographs from 02/14/2023 TECHNIQUE: XR chest 1V portable Frontal view of the chest. CLINICAL INDICATION:Female, 77 years old with history of chest pain; FINDINGS: Lungs/Pleura: Bibasilar atelectasis. No evidence for pneumothorax, pleural effusion or focal consolid ation. Pulmonary vascularity: Unremarkable. Heart/mediastinum: Cardiomediastinal silhouette is unremarkable. Musculoskeletal: No acute osseous pathology. Other findings: Large hiatal hernia is present. IMPRESSION: 1. No acute cardiopulmonary disease/process. 2. Large hiatal hernia. 3. Bibasilar atelectasis is similar prior.
[2023-05-02 20:17] LABS: Basophils % (A) 0 %; Eosinophils # (A) 0.3 k/uL (0-0.7); Eosinophils % (A) 3 %; HCT 39.9 % (34.0-46.0); HGB 12.9 gm/dL (11.4-16.0); Lymphocytes % (A) 39 %; MCH 27.8 pg (25.0-35.0); MCHC 32.3 g/dL (31.0-37.0); MCV 86.1 fL (80.0-100.0); Mean Platelet Volume 9.7; Monocytes # (A) 0.6 k/uL (0-1.0); Monocytes % (A) 8 %; Neutrophils # (A) 3.4 k/uL (1.3-7.7); Neutrophils % (A) 45 %; Platelet Count 219 k/uL (150-450); RBC 4.63 m/uL (3.80-5.40); RDW 14.2 % (11.5-15.5); WBC 7.6 k/uL (3.8-10.6)
[2023-05-02 20:31] LABS: Prothrombin Time 10.2 sec (9.0-12.0)
[2023-05-02 20:48] VITALS: RESP 18
[2023-05-02 21:00] LABS: ALT 22 U/L (4-34); African American GFR (CKD) >90 (>60 ml/min/1.73 sqM); Albumin 4.5 g/dL (3.5-5.0); Blood Urea Nitrogen 19 mg/dL (7-17); Calcium 9.6 mg/dL (8.4-10.2); Carbon Dioxide 25 mmol/L (22-30); Glucose 107 mg/dL (74-99); Lipase 66 U/L (23-300); Non-African American GFR(CKD) 83 (>60 ml/min/1.73 sqM); Total Bilirubin 0.5 mg/dL (0.2-1.3); Total Protein 7.3 g/dL (6.3-8.2)
[2023-05-02 21:07] LABS: NT-Pro-B-Type Natriuretic Pept 37 pg/mL
[2023-05-02 21:09] LABS: AST 34 U/L (14-36); Alkaline Phosphatase 114 U/L (38-126); Magnesium 1.9 mg/dL (1.6-2.3)
[2023-05-02 21:49] LABS: Anion Gap 8 mmol/L; Chloride 105 mmol/L (98-107); Sodium 138 mmol/L (137-145)
[2023-05-02 21:50] LABS: Potassium 4.2 mmol/L (3.5-5.1)
[2023-05-02 22:34] VITALS: BP 137/88; PULSE 70; TEMP 98.2
== END 2023-05-02 22:39 | disposition home or self-care (01) ==
LOC: EC 19:07
DX: K44.9 Diaphragmatic hernia without obstruction or gangrene (principal); R07.89 Other chest pain; R53.1 Weakness; E11.9 Type 2 diabetes mellitus without complications; E78.5 Hyperlipidemia, unspecified; I10 Essential (primary) hypertension; Z79.899 Other long term (current) drug therapy; Z88.5 Allergy status to narcotic agent; Z88.1 Allergy status to other antibiotic agents; Z88.8 Allergy status to other drugs, medicaments and biological substances; Z88.0 Allergy status to penicillin
CPT/HCPCS: 36415; 71045; 80053; 83690; 83735; 83880; 84484; 85025; 85610; 85730; 93005; 99285